=== PATIENT | male | born 1960 | race Caucasian/White ===

== ENCOUNTER 2016-03-01 08:45 | Day surgery (SDC) | payer OTHER ==
[2016-03-01 08:59] VITALS: RESP 16; TEMP 98.3
[2016-03-01] MEDS ORDERED: LACTATED RINGERS 1,000 ML IV ONE (09:04)
[2016-03-01] MEDS ORDERED: LIDOCAINE 1% 20 ML VIAL (10MG/ML) FOR IV START INTRADERMA ONE (09:05)
[2016-03-01] MEDS ORDERED: BUPIVACAINE (PF) 0.5% 30 ML VIAL ONE (09:32)
[2016-03-01] MEDS ORDERED: MIDAZOLAM 2 MG/2 ML VIAL ONE (09:32)
[2016-03-01] MEDS ORDERED: fentaNYL (PF) 50 MCG/ML 2 ML AMP ONE (09:32)
[2016-03-01] MEDS ORDERED: TRIAMCINOLONE ACETONIDE 40 MG/ML 1 ML VIAL ONE (09:32)
--- NOTE | 2016-03-01 10:09 | P.PCN ---
Date of Procedure: 03/01/16 Preoperative Diagnosis: Lumbar spondylosis without myelopathy Postoperative Diagnosis: Lumbar spondylosis without myelopathy or Procedure(s) Performed: Left lumbar medial branch radiofrequency ablation under fluoroscopic guidance Implants: Anesthesia: MAC Surgeon: Lilli Raman Pathology: none sent Condition: stable Disposition: PACU Indications for Procedure: Operative Findings: Description of Procedure: The patient was seen in preoperative holding area consent was obtained and was brought into the procedure room and placed in prone position. Skin was prepped with ChloraPrep and draped in a sterile manner. Lidocaine 1% was used to numb the skin over the target points that were chosen as follows: For the L5-S1 level which corresponds to the dorsal ramus of L5 the target point was at the superior medial aspect of the sacral ala on the left side of the spine on the AP view of fluoroscopy. For the L2-L3 and L4 medial branches the target points were the connection between the transverse process and the superior articular process of L3,L4 and L5 vertebra respectively on the left oblique view of fluoroscopy. I Used 18 gauge 100 mm in length with 10 mm curved active tip radiofrequency ablation needles for this procedure. I tried to place the active tips as parallel as possible to the medial branches tracks by going in a superior medial direction. AP oblique and lateral views of fluoroscopy were obtained to verify needle tips position. Motor stimulation showed only local twitches of these needles with no radiation of twitching to the left lower extremity after that I injected 1 mL of a solution made up of 3 mils Marcaine 0.5% +40 mg of Kenalog. Radio frequency ablation was started for 2 sessions for 90 seconds at 80C the needles were withdrawn by 1 or 2 mm and turning 180 after the first session of ablation. Patient tolerated procedure well.
[2016-03-01] MEDS ORDERED: IV FLUID CONTINUATION 700 ML IV ONE (10:16)
[2016-03-01 10:36] VITALS: BP 113/67; PULSE 69
--- NOTE | 2016-03-01 12:28 | FL ---
EXAMINATION TYPE: FL guided pain mgmt statistic DATE OF EXAM: 03/01/2016 10:06 AM COMPARISON: NONE HISTORY: Back pain Fluoroscopy support supplied to the referring clinician. See dictated report from anesthesia, 14 sec onds fluoroscopy time supplied, intraoperative C-arm image documents the procedure
== END 2016-03-01 11:06 | disposition home or self-care (01) ==
LOC: ORPAIN 08:45
PROVIDERS: ATTEND Anesthesiology
DX: M47.816 Spondylosis without myelopathy or radiculopathy, lumbar region (principal)
CPT/HCPCS: 64635; 64636; J2250; J3301; J3010

== ENCOUNTER → 2016-03-31 | Outpatient (CLI) | payer OTHER ==
[2016-03-31 14:37] VITALS: BP 140/79; PULSE 70; RESP 16; TEMP 98
--- NOTE | 2016-04-01 21:38 | P.PN ---
Subjective This is follow-up visit for this patient with a history of severe and chronic low back pain secondary to lumbar degenerative disc disease, lumbar facet arthropathy, we have done interventional pain management injection, radiofrequency ablation of the medial branch lumbar area, and this helped his low back pain significantly, and is currently on pain medications 1-MS Contin 60 mg every 8 hours 2-Percocet 5/325 every 6 hours when necessary for breakthrough pain Patient denies any side effects of the medication, denies excessive drowsiness or sleepiness, denies suicidal ideation, and reports that the current pain medication is NOT helping To control the pain and improve activity of daily living the VAS 8 /10 without the medications ,and it drope to 3-4 /10 with the medication Physical Examinations : 1-Constitutiona : Cooperative , not in acute distress . 2-HEENT : nech ; supple , no Lymphadenopathy , no Thyromegaly , normal thyroid size . eyes : no ptosis , no icterus, no photophobia . ENT : normal of hearing , normal oropharynx , no Thrush . 3- Respiratory : Chest clear to auscultations Bilaterally , no wheezing , no Rhonchi . 4- Cardiovascular : regular rate and rhythem , S1 , S2 , no S3 , no S4. 5- Gastrointestinal : abdomen soft no tenderness , bowel sounds positive all four quadrents , no organomegally . 6- Genitourinary : Defferred . 7- neurologic : Cranial nerve II to XII intact , no focal neurological deffecit . 8-psychatric : alert , oriented X 3 , appropriate affect , intact judgment and insight . 9-Lymphatic : no Lymphadenopathy . 10- musculoskeltal : exams of the cervical spine = motor strength normal bilateral upper extremities facet loading test cervical area positive. exams of the Lumber spine = motor strength lower extremities ,thigh and legs .4/5 deep tendon reflexes : normal Knee Jerk , normal ankle Jerk . lumber facet Loading Test positive strait leg raising test positive at 30 degree , RT ,LT , Fabere test positive RT and positive LT . Range of motion: Range of motion in flexion of the lumbar spine 30 degrees Range of motion range of motion of extension of the lumbar spine 10 Assessment and plan = - Chronic low back pain secondary to lumbar degenerative disc disease , lumbar spondylosis with facet arthropathy without myelopathy , - chronic and current use of high-risk medication (Opioids). The patient was counseled about risk of opioid use, psychological risk associated with opioids and was orally counseled to not overuse , abuse , divert ,or sell dictations to take medications as prescribed only , and to restore medication in safe location , and the patient counseled against driving while using narcotic medications, and also not to use alcohol or any illicit recreational drugs the patient's verbalized understanding that the lack of compliance will result in failure to renew narcotic prescription and possible discharge from the clinic - diagnoses, prognosis, and treatment options including but not limited to physical therapy, surgical interventions, interventional therapies and medication management including narcotics and adjuvant medication were discussed with the patient and all The questions answered -medication management =1-MS Contin 60 mg every 8 hours dispense 90 with 1 refill 2- Percocet 5/325 every 6 hours dispensed 120 with one refill . Next visit we'll do urine drug screen Objective - Vital Signs Vital signs: Vital Signs Temp 98 F 03/31/16 14:27 Pulse 70 03/31/16 14:27 Resp 16 03/31/16 14:27 BP 140/79 03/31/16 14:27 Pulse Ox 97 03/31/16 14:27
== END | disposition home or self-care (01) ==
LOC: PNWHC3 13:25
PROVIDERS: ATTEND Specialist
DX: G89.29 Other chronic pain (principal); M51.36 Other intervertebral disc degeneration, lumbar region; M47.816 Spondylosis without myelopathy or radiculopathy, lumbar region; M46.96 Unspecified inflammatory spondylopathy, lumbar region; Z79.891 Long term (current) use of opiate analgesic
CPT/HCPCS: 99211

== ENCOUNTER → 2016-06-22 | Outpatient (CLI) | payer OTHER ==
[2016-06-22 14:29] VITALS: BP 141/83; PULSE 90; RESP 18; TEMP 97.4
--- NOTE | 2016-06-22 14:44 | P.PN ---
Progress Note - Text This is a 56-year-old gentleman with history of chronic lower back pain with occasional radiation to the lower extremities. The patient has failed back surgery syndrome. His pain has been well-controlled with a combination of intervention pain procedures and oral opioids. He has been on MS Contin 60 mg 3 times a day and Percocet 5 mg up to 5 times a day for long time. He denies any side effects to these medications he does not show any drug-seeking behavior. He doesn't look oversedated. He denies any suicidal thoughts.. Today I will continue her this pain treatment with MS Contin and Percocet with no changes and we'll see him 2 months from now.
== END | disposition home or self-care (01) ==
LOC: PNWHC3 13:24
PROVIDERS: ATTEND Anesthesiology
DX: M54.5 Low back pain (principal); G89.29 Other chronic pain; Z79.891 Long term (current) use of opiate analgesic; Z79.899 Other long term (current) drug therapy
CPT/HCPCS: 99211

== ENCOUNTER 2016-08-09 21:45 | Emergency (ER) | payer OTHER ==
[2016-08-09 21:49] VITALS: RESP 18
[2016-08-09] MEDS ORDERED: ONDANSETRON 4 MG/2 ML VIAL IVP STA (21:59)
[2016-08-09] MEDS ORDERED: SODIUM CHLORIDE 0.9% 1,000 ML IV STA (21:59)
[2016-08-09] MEDS ORDERED: HYDROmorphone 1 MG/ML 1 ML SYRINGE IVP STA (21:59)
[2016-08-09] MEDS ORDERED: KETOROLAC 30 MG/ML 1 ML VIAL IVP STA (21:59)
[2016-08-09 22:26] LABS: Basophils % (A) 1 %; CH 33.7; CHCM 36.7; Eosinophils # (A) 0.2 k/uL (0-0.7); Eosinophils % (A) 3 %; HCT 39.1 % (39.0-53.0); HDW 3.01; HGB 14.1 gm/dL (13.0-17.5); Luc # (Auto) 0.16; Luc % (Auto) 3; Lymphocytes # (A) 1.9 k/uL (1.0-4.8); Lymphocytes % (A) 31 %; MCH 33.3 pg (25.0-35.0); MCHC 36.1 g/dL (31.0-37.0); MCV 92.3 fL (80.0-100.0); Mean Platelet Volume 7.6; Monocytes # (A) 0.3 k/uL (0-1.0); Monocytes % (A) 4 %; Neutrophils # (A) 3.5 k/uL (1.3-7.7); Neutrophils % (A) 58 %; RBC 4.24 m/uL (4.30-5.90); RDW 12.9 % (11.5-15.5); WBC (Perox) 6.37
[2016-08-09 22:38] LABS: ALT 48 U/L (21-72); AST 31 U/L (17-59); Alkaline Phosphatase 82 U/L (38-126); Amylase 73 U/L (30-110); Anion Gap 12 mmol/L; Blood Urea Nitrogen 16 mg/dL (9-20); Calcium 9.4 mg/dL (8.4-10.2); Carbon Dioxide 23 mmol/L (22-30); Chloride 105 mmol/L (98-107); Glucose 106 mg/dL (74-99); Non-African American GFR(MDRD) >60 (>60 ml/min/1.73 sqM); Potassium 4.1 mmol/L (3.5-5.1); Sodium 140 mmol/L (137-145); Total Bilirubin 0.9 mg/dL (0.2-1.3); Total Protein 6.7 g/dL (6.3-8.2)
--- NOTE | 2016-08-09 22:47 | XR ---
EXAM: XR Abdomen, 1 View CLINICAL HISTORY: Reason: abdominal pain TECHNIQUE: Frontal upright views of the abdomen/pelvis. COMPARISON: No relevant prior studies available. FINDINGS: Lower thorax: There appears to be a small calcified left hilar node present. Gastrointestinal tract: Mild to moderate amount of colonic stool throughout. No grossly dilated bowel loops are seen although there do appear to be a few scattered air-fluid levels, probably colonic, on these upright views. Organs: Right upper quadrant clips suggest cholecystectomy. Bones/joints: Multilevel degenerative changes, with slight leftward curvature centered at L1-2. IMPRESSION: 1. Nonspecific bowel gas pattern that includes scattered air-fluid levels without significant bowel distention to suggest obstruction, perhaps on the basis of ongoing ileus. The findings could be correlated and followed clinically to guide further imaging follow-up as clinically indicated. 2. No evidence of free air.
[2016-08-09] MEDS ORDERED: SODIUM CHLORIDE 0.9% 1,000 ML IV ONE (23:11)
[2016-08-09] MEDS ORDERED: SODIUM CHLORIDE 0.9% 1,000 ML IV SCH (23:15)
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
[2016-08-10] MEDS ORDERED: HYDROmorphone 1 MG/ML 1 ML SYRINGE IVP STA
[2016-08-10 00:02] LABS: Appearance,Urine Clear (Clear); Bilirubin,Urine Negative (Negative); Glucose,Urine (UA) Negative (Negative); Ketones,Urine Negative (Negative); Leukocyte Esterase,Urine Negative (Negative); Mucus,Urine Occasional /hpf; Nitrite,Urine Negative (Negative); Particle Count 3262; Protein,Urine Negative (Negative); RBC,Urine 14 /hpf (0-5); Specific Gravity,Urine 1.018 (1.001-1.035); UA Billing (MACRO vs. MICRO) MICRO; Urobilinogen,Urine <2.0 mg/dL (<2.0); WBC,Urine 1 /hpf (0-5)
[2016-08-10] MEDS ORDERED: MORPHINE SULFATE 4 MG/ML SYRINGE IVP STA (00:06)
--- NOTE | 2016-08-10 00:20 | CT ---
EXAM: CT Abdomen and Pelvis Without Intravenous Contrast CLINICAL HISTORY: Reason: Left flank pain TECHNIQUE: Axial computed tomography images of the abdomen and pelvis without intravenous contrast. CTDI is 14.90 mGy and DLP is 734.70 mGy-cm. This CT exam was performed using one or more of the following dose reduction techniques: automated exposure control, adjustment of the mA and/or kV according to patient size, and/or use of iterative reconstruction technique. COMPARISON: Earlier KUB. FINDINGS: Lower thorax: Minimal peripheral atelectasis or scarring at the lung bases. Coronary artery calcification. Mildly elevated left diaphragm. ABDOMEN: Liver: Diffuse hepatic steatosis. Gallbladder and bile ducts: Prior cholecystectomy. No ductal dilation. Pancreas: Mild generalized fatty replacement of the pancreas. Spleen: No splenomegaly. Adrenals: Unremarkable. No mass. Kidneys and ureters: No obstructing stones. No hydronephrosis. Stomach and bowel: Dilated air and fluid-filled small bowel loops measuring up to 5.7 cm in craniocaudal span on coronal image 27, anteriorly within the mid and lower abdomen, where there is a small left supraumbilical ventral wall hernia that contains a small portion of one small bowel loop within, adjacent to which small bowel is nondilated. Likewise, remaining small bowel including distally within the pelvis and right lower quadrant, is nondilated, nor is the colon. Appendix: No findings to suggest acute appendicitis. PELVIS: Bladder: Unremarkable. No stones. Reproductive: Small calcification centrally within normal size prostate gland. ABDOMEN and PELVIS: Intraperitoneal space: No free air. No significant fluid collection. Bones/joints: Multilevel degenerative changes. No acute fracture. Soft tissues: Small fat-containing umbilical hernia. Vasculature: Small amounts of atherosclerotic calcification. No abdominal aortic aneurysm. Lymph nodes: Scattered mildly prominent mesenteric nodes with surrounding mesenteric haziness. IMPRESSION: 1. There are several dilated small bowel loops suggesting the presence of a small bowel obstruction, with one of the loops slightly protruding into a left ventral wall hernia, perhaps the etiology or on the basis of adhesions. 2. Mildly prominent mesenteric nodes with surrounding mesenteric haziness suggesting a nonspecific mesenteritis. Follow-up CT could be obtained within 3 months to reassess. 3. Additional findings as above.
[2016-08-10] MEDS ORDERED: TAMSULOSIN 0.4 MG CAP.ER.24H PO STA (01:10)
[2016-08-10 01:22] VITALS: BP 110/78; PULSE 56; TEMP 98.7
== END 2016-08-10 01:20 | disposition home or self-care (01) ==
LOC: EC 21:45
DX: R10.9 Unspecified abdominal pain (principal); R30.0 Dysuria; F17.290 Nicotine dependence, other tobacco product, uncomplicated; Z79.1 Long term (current) use of non-steroidal anti-inflammatories (NSAID); Z79.899 Other long term (current) drug therapy; Z87.442 Personal history of urinary calculi; Z90.49 Acquired absence of other specified parts of digestive tract
CPT/HCPCS: 36415; 80053; 82150; 83690; 85025; 81001; 74000; 74176; 99285; 96374; 96375 ×3; 96361 ×3; J2270; J2405; J1885; J1170

== ENCOUNTER → 2016-08-17 | Outpatient (CLI) | payer OTHER ==
[2016-08-17 12:10] VITALS: BP 138/82; PULSE 66; RESP 16; TEMP 98.1
--- NOTE | 2016-08-17 12:30 | P.PN ---
Progress Note - Text Patient returns for followup for chronic back pain with radiation to lower extremities bilaterally. Patient underwent bilateral lumbar RFA in December and February, which provided some relief for a short interval. Patient continues on MSContin and Percocet medications for pain with decent relief. Patient denies adverse drug effects from medications. Today, pt denies new- onset weakness, bowel/bladder incontinence, or any other signs or symptoms of cauda equina syndrome. Patient's primary complaint is low back and hip pain, worse on right than left side. This pain prevents him from sitting or standing for long periods of time. In addition to above, 13-point review of systems is also negative for chest pain , shortness of breath, changes in vision, changes in hearing, new onset weakness , abdominal pain, diarrhea, extreme fatigue, malaise, fever, skin changes, homicidal or suicidal ideation, or bowel or bladder incontinence. Gen: WDWN, AAOx3, NAD HEENT: NCAT, EOMI, hearing grossly normal Pulm: resp unlabored Abd: soft, NT, ND Neck: supple, trachea midline ROM in flexion lumbar spine: reduced ROM in extension lumbar spine: reduced due to pain Lumbar paravertebral tenderness: L > R Facet loading: + bilaterally, L > R SI joint tenderness: + L side, neg R side Landon's test: ++ L side, + R side Straight leg raise: neg bilaterally Neuro: CN II-XII grossly intact, muscle strength lower extremities PRESERVED Assessment: 1. sacroiliitis 2. lumbar spondylosis without myelopathy 3. chronic pain syndrome Plan: 1. Explanation: Opioid and psychological risk scores were reviewed. Diagnoses , prognoses, and multiple treatment options including but not limited to physical therapy, interventional therapies, adjuvant medical therapies, narcotic medication therapies, and surgery were discussed with the patient and all questions were answered to the patient's satisfaction. 2. Opioid agreement: Patient signed narcotic agreement, and was orally counseled to not overuse, abuse, divert, or cell medications, and to take them as prescribed by only 1 healthcare provider. The patient was also counseled to take medications as prescribed by only 1 healthcare provider and to store opioid medications in the safe and preferably locked location. Patient was also counseled against driving while using narcotic medications and also to not use alcohol or any illicit or recreational drugs. The patient verbalized understanding that lack of compliance with any of the above and likely result in failure to renew narcotic prescriptions, possible discharge from the clinic, and possible legal ramifications thereafter if indicated. 3. Counseling: The patient was counseled extensively on SMOKING CESSATION, BODY MASS INDEX, EXERCISE, and ALCOHOL use. Specifically, the patient was instructed regarding the importance of smoking cessation, obesity, and exercise in the context of both chronic pain and overall health. 4. Procedures: R lumbar RFA 5. Consultations: None 6. Investigations: None 7. Medications: Decreased Percocet to 5/325 #120 and maintained MSContin 60 mg #90. Urine drug screen today. Told patient he is well above the recommended 90 oral MME, and we will plan to decrease Percocet to #90 over the next few months. After this, we will begin decreasing his MSContin dose. PQRS measures: 1-Patient's medications are documented in the chart. 2-Tobacco use is positive, counseling given 3-Patient has not had a pneumococcal vaccine. 4-Advanced care planning discussed, patient not eligible. 5-Opioid contract signed with the patient. 6-Pain positive, follow-up visit or procedure scheduled 7-Patient's blood pressure measured and documented, and normal. 8-Patient's weight was measured, and body mass index ABOVE the normal limits, and counseling was done. Patient instructed to follow up with PCP. 9-Patient WAS NOT identified as an unhealthy alcohol user.
== END | disposition home or self-care (01) ==
LOC: PNWHC3 11:52
PROVIDERS: ATTEND Anesthesiology
DX: M46.1 Sacroiliitis, not elsewhere classified (principal); M47.816 Spondylosis without myelopathy or radiculopathy, lumbar region; G89.4 Chronic pain syndrome; Z79.899 Other long term (current) drug therapy; Z72.0 Tobacco use
CPT/HCPCS: G0480; G0463; 80307; 80348; 80356; 99211

== ENCOUNTER 2016-09-27 09:17 | Day surgery (SDC) | payer OTHER ==
[2016-09-23 13:28] VITALS: BMI 28.8
[~2016-09-27 09:17] MED LIST: LACTATED RINGERS 1,000 ML IV ONE
[2016-09-27 10:05] VITALS: RESP 16; TEMP 98.4
[2016-09-27] MEDS ORDERED: LIDOCAINE 1% 20 ML VIAL (10MG/ML) FOR IV START SQ ONE (10:11)
--- NOTE | 2016-09-27 11:02 | P.PCN ---
Date of Procedure: 09/27/16 Preoperative Diagnosis: Lumbar spondylosis without myelopathy Postoperative Diagnosis: Same as above Procedure(s) Performed: Right lumbar medial branch radio frequency ablation under fluoroscopic guidance for levels L2, L3, L4, and the dorsal ramus of L5 Implants: Anesthesia: other (Moderate conscious sedation with IV Versed and fentanyl) Surgeon: Lilli Raman Pathology: none sent Condition: stable Disposition: PACU Indications for Procedure: Operative Findings: Description of Procedure: The patient was seen in preoperative holding area consent was obtained then he was brought into the procedure room and placed in prone position. Skin was prepped with ChloraPrep and draped in a sterile manner. Lidocaine 1% was used to numb the skin up at the target points that were chosen as follows: For the L5 -S1 level which corresponds to the dorsal ramus of L5 the target point was at the superior medial aspect of the sacral ala on the right side of the spine on the AP view of fluoroscopy and for the L2,L3, and L4 medial branches the target points were the connection between the transverse process and the superior articular process of L3, for this procedure. L4 and L5 vertebra respectively on the right oblique fluoroscopy. I used 18G,100 mm in length with 10 mm curved active tip radiofrequency ablation needles. AP, oblique, and lateral views of fluoroscopy were used to verify needle tips position. Then motor stimulation showed only local twitches of these needles with no radiation of twitching to the right lower extremity. I then prepared a solution of 3 mils of Marcaine 0.5% +40 mg of Kenalog and 1 mL of the solution was given in each needle before starting radiofrequency ablation for 90 seconds at 80C. After the first session was done the needles were withdrawn by 1 or 2 mm and the bevels were turned 100 and another session ablation was started for 90 seconds at 80C. Patient tolerated procedure well.
--- NOTE | 2016-09-27 11:06 | FL ---
Fluoroscopy INDICATION: Pain FINDINGS: Fluoroscopy time: 11 seconds. Images obtained: 1. IMPRESSIONS: 1. Documentation of fluoroscopy.
[2016-09-27 11:07] VITALS: BP 126/70
[2016-09-27] MEDS ORDERED: IV FLUID CONTINUATION 1,000 ML IV ONE (11:09)
[2016-09-27 11:22] VITALS: PULSE 69
[2016-09-29 08:27] LABS: Mis test requested (Non-blood) HEROIN
== END 2016-09-27 11:36 | disposition home or self-care (01) ==
LOC: ORPAIN 09:17
PROVIDERS: ATTEND Anesthesiology
DX: M47.816 Spondylosis without myelopathy or radiculopathy, lumbar region (principal)
CPT/HCPCS: 64635; 64636; 99152; 99153; J2250; J3301; J3010; 80356

== ENCOUNTER → 2016-10-12 | Outpatient (CLI) | payer OTHER ==
[2016-10-12 12:59] VITALS: BP 143/74; PULSE 69; RESP 18; TEMP 98
--- NOTE | 2016-10-12 13:44 | P.PN ---
Progress Note - Text Patient returns for followup for chronic back pain with radiation to lower extremities bilaterally. Patient underwent right lumbar RFA at last visit, which provided some relief for interval since procedure done two weeks ago. Patient continues on MSContin and Percocet medications for pain with decent relief; Percocet decreased to #120 at last visit. Patient denies adverse drug effects from medications. Today, pt denies new-onset weakness, bowel/bladder incontinence, or any other signs or symptoms of cauda equina syndrome. Patient's primary complaint is low back and hip pain, worse on right than left side. This pain prevents him from sitting or standing for long periods of time. In addition to above, 13-point review of systems is also negative for chest pain , shortness of breath, changes in vision, changes in hearing, new onset weakness , abdominal pain, diarrhea, extreme fatigue, malaise, fever, skin changes, homicidal or suicidal ideation, or bowel or bladder incontinence. Gen: WDWN, AAOx3, NAD HEENT: NCAT, EOMI, hearing grossly normal Pulm: resp unlabored Abd: soft, NT, ND Neck: supple, trachea midline ROM in flexion lumbar spine: reduced ROM in extension lumbar spine: reduced due to pain Lumbar paravertebral tenderness: L > R Facet loading: + bilaterally, L >> R SI joint tenderness: + L side Landon's test: + bilateral Neuro: CN II-XII grossly intact, muscle strength lower extremities PRESERVED Assessment: 1. sacroiliitis 2. lumbar spondylosis without myelopathy 3. chronic pain syndrome Plan: 1. Explanation: Opioid and psychological risk scores were reviewed. Diagnoses , prognoses, and multiple treatment options including but not limited to physical therapy, interventional therapies, adjuvant medical therapies, narcotic medication therapies, and surgery were discussed with the patient and all questions were answered to the patient's satisfaction. 2. Opioid agreement: Patient signed narcotic agreement, and was orally counseled to not overuse, abuse, divert, or cell medications, and to take them as prescribed by only 1 healthcare provider. The patient was also counseled to take medications as prescribed by only 1 healthcare provider and to store opioid medications in the safe and preferably locked location. Patient was also counseled against driving while using narcotic medications and also to not use alcohol or any illicit or recreational drugs. The patient verbalized understanding that lack of compliance with any of the above and likely result in failure to renew narcotic prescriptions, possible discharge from the clinic, and possible legal ramifications thereafter if indicated. 3. Counseling: The patient was counseled extensively on SMOKING CESSATION, BODY MASS INDEX, EXERCISE, and ALCOHOL use. Specifically, the patient was instructed regarding the importance of smoking cessation, obesity, and exercise in the context of both chronic pain and overall health. 4. Procedures: left lumbar RFA 5. Consultations: None 6. Investigations: UDS negative for oxycodone on 09/27/16 7. Medications: Maintained Percocet at 5/325 #120 and maintained MSContin 60 mg #90. Urine drug screen today. Told patient he is well above the recommended 90 oral MME, and we will plan to decrease Percocet to #90 over the next few months. After this, we will begin decreasing his MSContin dose. PQRS measures: 1-Patient's medications are documented in the chart. 2-Tobacco use is positive, counseling given 3-Patient has not had a pneumococcal vaccine. 4-Advanced care planning discussed, patient not eligible. 5-Opioid contract signed with the patient. 6-Pain positive, follow-up visit or procedure scheduled 7-Patient's blood pressure measured and documented, and normal. 8-Patient's weight was measured, and body mass index ABOVE the normal limits, and counseling was done. Patient instructed to follow up with PCP. 9-Patient WAS NOT identified as an unhealthy alcohol user.
== END ==
LOC: PNWHC3 12:32
PROVIDERS: ATTEND Anesthesiology
DX: M47.816 Spondylosis without myelopathy or radiculopathy, lumbar region (principal); M46.1 Sacroiliitis, not elsewhere classified; Z79.891 Long term (current) use of opiate analgesic; Z79.899 Other long term (current) drug therapy
CPT/HCPCS: 80307; 80346; 80356; 80364; 99211

== ENCOUNTER 2016-10-26 07:45 | Day surgery (SDC) | payer OTHER ==
[2016-10-19 15:11] VITALS: BMI 28.1
[~2016-10-26 07:45] MED LIST changes: -LACTATED RINGERS 1,000 ML IV ONE; +LACTATED RINGERS 1,000 ML IV SCH
[2016-10-26 08:40] VITALS: TEMP 98.3
[2016-10-26] MEDS ORDERED: LIDOCAINE 1% 20 ML VIAL (10MG/ML) FOR IV START INTRADERMA ONE (08:52)
--- NOTE | 2016-10-26 09:58 | P.PCN ---
Date of Procedure: 10/26/16 Preoperative Diagnosis: lumbar Spondylosis without myelopathy Postoperative Diagnosis: Same as above Procedure(s) Performed: Left lumbar medial branch radiofrequency ablation under fluoroscopic guidance Implants: Anesthesia: other (Conscious sedation with IV fentanyl and Versed) Surgeon: Lilli Raman Pathology: none sent Condition: stable Disposition: PACU Indications for Procedure: Operative Findings: Description of Procedure: The patient was seen in preoperative holding area consent was obtained then he was brought into the procedure room and placed in prone position. Skin was prepped with ChloraPrep and draped in a sterile manner. Lidocaine 1% was used to numb the skin up at the target points that were chosen as follows: For the L5 -S1 level which corresponds to the dorsal ramus of L5 the target point was at the superior medial aspect of the sacral ala on the left side of the spine on the AP view of fluoroscopy and for the L2,L3, and L4 medial branches the target points were the connection between the transverse process and the superior articular process of L3, L4 and L5 vertebra respectively on the left oblique fluoroscopy. I used 18G,100 mm in length with 10 mm curved active tip radiofrequency ablation needles. AP, oblique, and lateral views of fluoroscopy were used to verify needle tips position. Then motor stimulation showed only local twitches of these needles with no radiation of twitching to the left lower extremity. I then prepared a solution of 3 mils of Marcaine 0.5% +40 mg of Kenalog and 1 mL of the solution was given in each needle before starting radiofrequency ablation for 90 seconds at 80C. After the first session was done the needles were withdrawn by 1 or 2 mm and the bevels were turned 100 and another session ablation was started for 90 seconds at 80C. Patient tolerated procedure well.
[2016-10-26] MEDS ORDERED: IV FLUID CONTINUATION 350 ML IV ONE (10:12)
[2016-10-26 10:22] VITALS: RESP 18
[2016-10-26 10:28] VITALS: BP 103/70; PULSE 62
--- NOTE | 2016-10-26 10:34 | FL ---
EXAMINATION TYPE: FL guided pain mgmt statistic DATE OF EXAM: 10/26/2016 COMPARISON: NONE HISTORY: Back pain TECHNIQUE: Fluoroscopy. FINDINGS/IMPRESSION: Fluoroscopic guidance was provided during procedure performed by Dr. Raman. A total of 13 seconds of fluoroscopic time was utilized during the procedure and for spot images was acquired.
--- NOTE | 2016-11-01 20:17 | CDI ---
Dear Dr. Raman, In order to properly code and bill, we need more specificity regarding the levels treated. "To report these procedures appropriately, physicians must clearly document the following: vertebral region level(s) (eg, cervical, thoracic, lumbar, etc.), and the facet joints (eg. L3-L4, L4-L5) involved, and whether the procedure(s) is unilateral or bilateral. Although the number of nerves and/or lesions might be noted in the clinical note, these factors do not influence the code selection or the number of units reported."-CPT Asst In summary, the coding of this procedure is based on number of facet joints treated, not number of nerves treated. The facet joints must be reported as L2- L3, L3-L4, L4-L5, L5-S1, for example. Please state the injections in terms of facet joint levels as an addendum to your op report. Thank you, Sol CHU
== END 2016-10-26 10:44 | disposition home or self-care (01) ==
LOC: ORPAIN 07:45
PROVIDERS: ATTEND Anesthesiology
DX: M47.816 Spondylosis without myelopathy or radiculopathy, lumbar region (principal)
CPT/HCPCS: 99152; 99153; 64635; 64636 ×2; J2250; J3010

== ENCOUNTER → 2016-12-07 | Outpatient (CLI) | payer OTHER ==
[2016-12-07 13:50] VITALS: BP 138/78; PULSE 77; RESP 16
--- NOTE | 2016-12-07 14:06 | P.PN ---
Subjective Progress Note Date: 12/07/16 This is follow-up visit for this patient with a history of severe and chronic low back pain secondary to , lumbar spondylosis with facet arthropathy , we have done interventional pain management injection, radiofrequency ablation of the medial branch lumbar area which helped his lower extremity significantly and continued to have some low back pain, is currently On pain medication, 1-MS Contin 60 mg every 8 hours 2-Percocet 5/325 every 6 hours when necessary for pain 3-Motrin 600 mg every 8 hours Patient denies any side effects of the medication, denies excessive drowsiness or sleepiness, denies suicidal ideation, and reports that the current pain medication is NOT helping To control the pain and improve activity of daily living Patient denies any motor or sensory deficit , patient denies any fever or night sweats, denies any change in the bowel movements or urination Physical Examinations : 1-Constitutiona : Cooperative , not in acute distress . 2-HEENT : nech ; supple , no Lymphadenopathy , no Thyromegaly , normal thyroid size . eyes : no ptosis , no icterus, no photophobia . ENT : normal of hearing , normal oropharynx , no Thrush . 3- Respiratory : Chest clear to auscultations Bilaterally , no wheezing , no Rhonchi . 4- Cardiovascular : regular rate and rhythem , S1 , S2 , no S3 , no S4. 5- Gastrointestinal : abdomen soft no tenderness , bowel sounds positive all four quadrents , no organomegally . 6- Genitourinary : Defferred . 7- neurologic : Cranial nerve II to XII intact , no focal neurological deffecit . 8-psychatric : alert , oriented X 3 , appropriate affect , intact judgment and insight . 9-Lymphatic : no Lymphadenopathy . 10- musculoskeltal : exams of the Lumber spine = motor strength lower extremities ,thigh and legs .5/5 deep tendon reflexes : normal Knee Jerk , normal ankle Jerk . lumber facet Loading Test positive strait leg raising test positive at 30 degree , RT ,LT , Fabere test positive RT and positive LT . Range of motion: Range of motion in flexion of the lumbar spine 30 degrees Range of motion range of motion of extension of the lumbar spine 10 assement and plan = Chronic low back pain secondary to, lumbar spondylosis with facet arthropathy without myelopathy , chronic and current use of high-risk medication (Opioids). The patient was counseled about risk of opioid use, psychological risk associated with opioids and was orally counseled to not overuse , divert,or sell dictations to take medications as prescribed only , and to restore medication in safe location , and the patient counseled against driving while using narcotic medications, and also not to use alcohol or any illicit recreational drugs, the patient's verbalized understanding that the lack of compliance will result in failure to renew narcotic prescription and possible discharge from the clinic - diagnoses, prognosis, and treatment options including but not limited to physical therapy, surgical interventions, interventional therapies , and medication management including narcotics and adjuvant medication were discussed with the patient and all the questions answered Prescription refills for MS Contin 60 mg every 8 hours dispense 90 with 1 refill Percocet 5/325 every 6 hours dispense 120 with one refill, Motrin 600 mg every 8 hours dispense 90 with 1 refill , and he will follow up in the pain clinic in 2 months Objective - Vital Signs Vital signs: Vital Signs Temp Pulse 77 12/07/16 13:39 Resp 16 12/07/16 13:39 BP 138/78 12/07/16 13:39 Pulse Ox 98 12/07/16 13:39 Intake & Output 12/06/16 12/07/16 12/07/16 18:59 06:59 18:59 Weight 83.915 kg
== END | disposition home or self-care (01) ==
LOC: PNWHC3 13:14
PROVIDERS: ATTEND Specialist
DX: M47.816 Spondylosis without myelopathy or radiculopathy, lumbar region (principal); M46.86 Other specified inflammatory spondylopathies, lumbar region
CPT/HCPCS: 99211

== ENCOUNTER → 2017-02-28 | Outpatient (CLI) | payer OTHER ==
--- NOTE | 2017-02-28 15:50 | P.PN ---
Subjective Progress Note Date: 02/28/17 This is follow-up visit for this patient with a history of severe and chronic low back pain secondary to lumbar degenerative disc diseases , lumbar spondylosis with facet arthropathy, we have done interventional pain management injection, facet ablation of the medial branch lumbar area, Patients currently on 1- MS Contin 60 mg every 8 hours 2- percocet 5/325 q 6 h 3- motrin 600 mg 3 times a day Patient denies any side effects of the medication, denies excessive drowsiness or sleepiness, denies suicidal ideation, and reports that the current pain medication is helping To control the pain ,and improve activity of daily living Patient denies any motor or sensory deficit , patient denies any fever or night sweats, denies any change in the bowel movements or urination, and heat have severe right shoulder pain after he fell on his right elbow , he was schedualed to see orthopedic surgeon the next few weeks Physical Examinations : 1-Constitutiona : Cooperative , not in acute distress . 2-HEENT : nech ; supple , no Lymphadenopathy , no Thyromegaly , normal thyroid size . eyes : no ptosis , no icterus, no photophobia . ENT : normal of hearing , normal oropharynx , no Thrush . 3- Respiratory : Chest clear to auscultations Bilaterally , no wheezing , no Rhonchi . 4- Cardiovascular : regular rate and rhythem , S1 , S2 , no S3 , no S4. 5- Gastrointestinal : abdomen soft no tenderness , bowel sounds positive all four quadrents , no organomegally . 6- Genitourinary : Defferred . 7- neurologic : Cranial nerve II to XII intact , no focal neurological deffecit . 8-psychatric : alert , oriented X 3 , appropriate affect , intact judgment and insight . 9-Lymphatic : no Lymphadenopathy . 10- musculoskeltal : exams of the cervical spine = motor strength normal bilateral upper extremities passive and Active movement of the right shoulder associated with severe pain exams of the Lumber spine = motor strength lower extremities ,thigh and legs .5/5 deep tendon reflexes : normal Knee Jerk , normal ankle Jerk . lumber facet Loading Test positive strait leg raising test positive at 30 degree , RT ,LT , Fabere test positive RT and positive LT . Range of motion: Range of motion in flexion of the lumbar spine 30 degrees Range of motion range of motion of extension of the lumbar spine 10 Assessment and plan = Chronic low back pain secondary to lumbar degenerative disc disease , lumbar spondylosis with facet arthropathy without myelopathy , right shoulder pain chronic and current use of high-risk medication (Opioids). The patient was counseled about risk of opioid use, psychological risk associated with opioids and was orally counseled to not overuse , divert,or sell dictations to take medications as prescribed only , and to restore medication in safe location , and the patient counseled against driving while using narcotic medications, and also not to use alcohol or any illicit recreational drugs, the patient's verbalized understanding that the lack of compliance will result in failure to renew narcotic prescription and possible discharge from the clinic - diagnoses, prognosis, and treatment options including but not limited to physical therapy, surgical interventions, interventional therapies , and medication management including narcotics and adjuvant medication were discussed with the patient and all the questions answered She was scheduled to see Dr. Chapman orthopedic surgeon in the next few weeks and he will be evaluated regarding his shoulder pain. Event prescription refill for the pain medication Percocet 5/325 was dispensed 120 with one refill , and MS Contin 60 mg every 8 hours dispense 90 with 1 refill Objective - Vital Signs Vital signs: Vital Signs Temp Pulse 68 02/28/17 14:18 Resp 16 02/28/17 14:18 BP 128/79 02/28/17 14:18 Pulse Ox 96 02/28/17 14:18 Intake & Output 02/27/17 02/28/17 02/28/17 18:59 06:59 18:59 Weight 86.183 kg
[2017-03-01 23:06] VITALS: BP 128/79; PULSE 68; RESP 16
== END | disposition home or self-care (01) ==
LOC: PNWHC3 14:04
PROVIDERS: ATTEND Specialist
DX: M51.36 Other intervertebral disc degeneration, lumbar region (principal); M47.816 Spondylosis without myelopathy or radiculopathy, lumbar region; M46.96 Unspecified inflammatory spondylopathy, lumbar region; M46.86 Other specified inflammatory spondylopathies, lumbar region; M25.511 Pain in right shoulder
CPT/HCPCS: 99211

== ENCOUNTER → 2017-04-25 | Outpatient (CLI) | payer OTHER ==
[2017-04-25 13:19] VITALS: BP 151/82; PULSE 80; RESP 16
--- NOTE | 2017-04-25 13:47 | P.PN ---
Progress Note - Text Progress Note Date: 04/25/17 Patient returns for followup for chronic back pain with radiation to lower extremities bilaterally. Patient saw orthopedic surgeon re: Irasema shoulder and is considering further injections in the future in that area. Patient continues on MSContin and Percocet medications for pain with decent relief, but last several UDS have been problematic. Patient denies adverse drug effects from medications. Today, pt denies new-onset weakness, bowel/bladder incontinence, or any other signs or symptoms of cauda equina syndrome. Patient's primary complaint is low back and hip pain, worse on right than left side. This pain prevents him from sitting or standing for long periods of time. In addition to above, 13-point review of systems is also negative for chest pain , shortness of breath, changes in vision, changes in hearing, new onset weakness , abdominal pain, diarrhea, extreme fatigue, malaise, fever, skin changes, homicidal or suicidal ideation, or bowel or bladder incontinence. Gen: WDWN, AAOx3, NAD HEENT: NCAT, EOMI, hearing grossly normal Pulm: resp unlabored Abd: soft, NT, ND Neck: supple, trachea midline ROM in flexion lumbar spine: reduced ROM in extension lumbar spine: reduced due to pain Lumbar paravertebral tenderness: L > R Facet loading: + bilaterally, L >> R SI joint tenderness: + L side Landon's test: + bilateral Neuro: CN II-XII grossly intact, muscle strength lower extremities PRESERVED Assessment: 1. sacroiliitis 2. lumbar spondylosis without myelopathy 3. chronic pain syndrome Plan: 1. Explanation: Opioid and psychological risk scores were reviewed. Diagnoses , prognoses, and multiple treatment options including but not limited to physical therapy, interventional therapies, adjuvant medical therapies, narcotic medication therapies, and surgery were discussed with the patient and all questions were answered to the patient's satisfaction. 2. Opioid agreement: Patient signed narcotic agreement, and was orally counseled to not overuse, abuse, divert, or cell medications, and to take them as prescribed by only 1 healthcare provider. The patient was also counseled to take medications as prescribed by only 1 healthcare provider and to store opioid medications in the safe and preferably locked location. Patient was also counseled against driving while using narcotic medications and also to not use alcohol or any illicit or recreational drugs. The patient verbalized understanding that lack of compliance with any of the above and likely result in failure to renew narcotic prescriptions, possible discharge from the clinic, and possible legal ramifications thereafter if indicated. 3. Counseling: The patient was counseled extensively on SMOKING CESSATION, BODY MASS INDEX, EXERCISE, and ALCOHOL use. Specifically, the patient was instructed regarding the importance of smoking cessation, obesity, and exercise in the context of both chronic pain and overall health. 4. Procedures: none for now 5. Consultations: Adela Obrien) for eval of right shoulder 6. Investigations: UDS review as below 1. UDS negative for oxycodone and positive for hydromorphone 10/12/16 2. UDS from 09/27/16 is positive for hydromorphone in addition to oxycodone and metabolites 3. UDS done 08/17/16 is positive for buprenorphine metabolites and negative for opioids 4. UDS done 02/01/17 is positive for buprenorphine metabolites and appropriately positive for opioids. 7. Medications: MSContin 60 mg #90 and Percocet 5/325 #120 with no refill 8. Disposition: DISCHARGED FROM OPIOID CONTRACT DUE TO INAPPROPRIATE UDS ABOVE. Patient can follow up for procedures in the future if desired. PQRS measures: 1-Patient's medications are documented in the chart. 2-Tobacco use is positive, counseling given 3-Patient has not had a pneumococcal vaccine. 4-Advanced care planning discussed, patient not eligible. 5-Opioid contract signed with the patient. 6-Pain positive, follow-up visit or procedure scheduled 7-Patient's blood pressure measured and documented, and normal. 8-Patient's weight was measured, and body mass index ABOVE the normal limits, and counseling was done. Patient instructed to follow up with PCP. 9-Patient WAS NOT identified as an unhealthy alcohol user.
== END | disposition home or self-care (01) ==
LOC: PNWHC3 13:07
PROVIDERS: ATTEND Anesthesiology
DX: G89.4 Chronic pain syndrome (principal); M47.816 Spondylosis without myelopathy or radiculopathy, lumbar region; M46.1 Sacroiliitis, not elsewhere classified; Z79.891 Long term (current) use of opiate analgesic
CPT/HCPCS: 99211

== ENCOUNTER 2017-09-16 15:40 | Emergency (ER) | payer OTHER ==
[2017-09-16] MEDS ORDERED: MORPHINE SULFATE 4 MG/ML SYRINGE IV STA (16:39)
[2017-09-16] MEDS ORDERED: SODIUM CHLORIDE 0.9% 1,000 ML IV STA (16:39)
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
[2017-09-16 17:15] LABS: Basophils % (A) 1 %; Eosinophils # (A) 0.2 k/uL (0-0.7); Eosinophils % (A) 4 %; HCT 39.2 % (39.0-53.0); HGB 13.7 gm/dL (13.0-17.5); Lymphocytes # (A) 1.9 k/uL (1.0-4.8); Lymphocytes % (A) 37 %; MCHC 34.9 g/dL (31.0-37.0); MCV 91.8 fL (80.0-100.0); Mean Platelet Volume 7.8; Monocytes # (A) 0.4 k/uL (0-1.0); Monocytes % (A) 7 %; Neutrophils # (A) 2.6 k/uL (1.3-7.7); Neutrophils % (A) 49 %; Platelet Count 157 k/uL (150-450); RBC 4.27 m/uL (4.30-5.90); WBC 5.3 k/uL (3.8-10.6)
[2017-09-16 17:16] LABS: Appearance,Urine Clear (Clear); Bilirubin,Urine Negative (Negative); Blood,Urine Negative (Negative); Color,Urine Yellow; Glucose,Urine (UA) Negative (Negative); Ketones,Urine Negative (Negative); Leukocyte Esterase,Urine Negative (Negative); Nitrite,Urine Negative (Negative); PH, Urine 5.5 (5.0-8.0); Protein,Urine Negative (Negative); Specific Gravity,Urine 1.025 (1.001-1.035)
[2017-09-16 17:32] LABS: ALT 47 U/L (21-72); AST 32 U/L (17-59); Albumin 4.1 g/dL (3.5-5.0); Alkaline Phosphatase 82 U/L (38-126); Amylase 61 U/L (30-110); Anion Gap 10 mmol/L; Blood Urea Nitrogen 19 mg/dL (9-20); Calcium 9.1 mg/dL (8.4-10.2); Carbon Dioxide 25 mmol/L (22-30); Chloride 106 mmol/L (98-107); Glucose 113 mg/dL (74-99); Lipase 21 U/L (23-300); Sodium 141 mmol/L (137-145); Total Bilirubin 1.1 mg/dL (0.2-1.3); Total Protein 6.5 g/dL (6.3-8.2)
[2017-09-16 19:18] VITALS: BP 112/68; PULSE 73; RESP 16; TEMP 97.6
--- NOTE | 2017-09-16 19:43 | CT ---
EXAMINATION TYPE: CT abdomen pelvis w con DATE OF EXAM: 09/16/2017 COMPARISON: Prior CT study dated 08/09/2016. HISTORY: Patient complains of hernia and abnormal xray at office. CT DLP: 1146.8 mGycm Automated exposure control for dose reduction was used. TECHNIQUE: Helical acquisition of images was performed from the lung bases through the pelvis. CONTRAST: Performed without Oral Contrast and with IV Contrast, patient injected with 100 mL of Isovue 300. FINDINGS: LUNG BASES: No significant abnormality is appreciated. LIVER/GB: Post cholecystectomy changes. PANCREAS: No significant abnormality is seen. SPLEEN: No significant abnormality is seen. ADRENALS: No significant abnormality is seen. KIDNEYS: No significant abnormality is seen. FREE AIR: No free air is visualized. RETROPERITONEAL ADENOPATHY: None visualized REPRODUCTIVE ORGANS: No significant abnormality is seen URINARY BLADDER: No significant abnormality is seen. PELVIC ADENOPATHY: None visualized. OSSEOUS STRUCTURES: No significant abnormality is seen. BOWEL: Distended loops of bowel projecting along the mid abdomen with a hernia containing loops of saadia wel visible on axial image labeled #46. Fluid levels and distended loops of bowel indicate that the h ernia is producing moderate obstruction. OTHER: No free intraperitoneal air or significant fluid inside the peritoneal cavity. IMPRESSION: ABDOMINAL WALL HERNIA ON THE LEFT SIDE OF THE ABDOMEN WHICH IS VISIBLE ON AXIAL IMAGE LABELED #45-[id number] TAINING LOOPS OF BOWEL. DISTINCTION O AND FLUID LEVELS OF THE PROXIMAL LOOPS OF BOWEL INDICATING MODE RATE OBSTRUCTION. NO FREE AIR OR SIGNIFICANT FREE FLUID INSIDE THE PERITONEAL CAVITY.
== END 2017-09-16 20:10 | disposition home or self-care (01) ==
LOC: EC 15:40
DX: K43.9 Ventral hernia without obstruction or gangrene (principal); G89.29 Other chronic pain; Z79.1 Long term (current) use of non-steroidal anti-inflammatories (NSAID); Z79.891 Long term (current) use of opiate analgesic; Z79.899 Other long term (current) drug therapy; Z90.49 Acquired absence of other specified parts of digestive tract
CPT/HCPCS: 36415; 80053; 82150; 83605; 83690; 85025; 81003; 87086; 74177; 99284; 96374; 96361; J2270; Q9967

== ENCOUNTER → 2018-01-19 | Outpatient (CLI) | payer OTHER ==
[2018-01-19 15:06] LABS: Basophils % (A) 1 %; Eosinophils # (A) 0.2 k/uL (0-0.7); Eosinophils % (A) 4 %; HCT 42.9 % (39.0-53.0); Lymphocytes % (A) 38 %; MCH 31.9 pg (25.0-35.0); MCHC 32.7 g/dL (31.0-37.0); MCV 97.5 fL (80.0-100.0); Mean Platelet Volume 7.5; Monocytes # (A) 0.4 k/uL (0-1.0); Monocytes % (A) 7 %; Neutrophils # (A) 2.6 k/uL (1.3-7.7); Neutrophils % (A) 49 %; Platelet Count 192 k/uL (150-450); RDW 13.2 % (11.5-15.5); WBC 5.3 k/uL (3.8-10.6)
== END | disposition home or self-care (01) ==
LOC: LABPAT 13:42
PROVIDERS: ATTEND Surgery
DX: Z01.818 Encounter for other preprocedural examination (principal); K43.0 Incisional hernia with obstruction, without gangrene; F17.210 Nicotine dependence, cigarettes, uncomplicated; Z01.812 Encounter for preprocedural laboratory examination
CPT/HCPCS: 36415; 85025; 93005

== ENCOUNTER 2018-01-23 06:45 | Observation (INO) | payer OTHER ==
[2018-01-16 15:33] VITALS: BMI 28.8
[~2018-01-23 06:45] MED LIST changes: +HEPARIN SODIUM,PORCINE 5,000 UNIT/ML 1 ML VIAL SQ ONE; -LACTATED RINGERS 1,000 ML IV SCH; +ceFAZolin IN SWFI 2 GM/20 ML SYRINGE IVP ONE
[2018-01-23] MEDS: LACTATED RINGERS 1,000 ML IV SCH (06:55)
[2018-01-23] MEDS ORDERED: LIDOCAINE 1% 20 ML VIAL (10MG/ML) FOR IV START INTRADERMA ONE (06:56)
[2018-01-23] MEDS ORDERED: ONDANSETRON 4 MG/2 ML VIAL IVP ONE (07:12)
[2018-01-23] MEDS ORDERED: DEXAMETHASONE SOD PHOS (MDV) 100 MG/10 ML VIAL IV ONE (07:12)
[2018-01-23] MEDS ORDERED: BUPIVACAIN-EPI 0.25%-1:200,000 30 ML VIAL SQ ONE ×3 (07:40→08:29)
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
[2018-01-23] MEDS ORDERED: fentaNYL (PF) 50 MCG/ML 2 ML AMP ONE (07:53)
[2018-01-23] MEDS ORDERED: SUCCINYLCHOLINE CHLORIDE 100 MG/5 ML SYR IV ONE (07:53)
[2018-01-23] MEDS ORDERED: MIDAZOLAM 2 MG/2 ML VIAL ONE (07:53)
[2018-01-23] MEDS ORDERED: KETOROLAC 30 MG/ML 1 ML VIAL ONE (07:53)
[2018-01-23] MEDS ORDERED: LIDOCAINE 1% INJ 10MG/ML (20 ML MDV) ONE (07:53)
[2018-01-23] MEDS ORDERED: ROCURONIUM BROMIDE 10 MG/ML 10 ML VIAL IV ONE (07:53)
[2018-01-23] MEDS ORDERED: GLYCOPYRROLATE 0.2 MG/ML 2 ML VIAL ONE (07:53)
[2018-01-23] MEDS ORDERED: NEOSTIGMINE 1 MG/ML 10 ML VIAL ONE (07:53)
[2018-01-23] MEDS ORDERED: PROPOFOL 10 MG/ML 20 ML VIAL IV ONE (07:53)
[2018-01-23] MEDS ORDERED: LACTATED RINGERS 1,000 ML IV ONE (09:14)
[2018-01-23] MEDS ORDERED: METOCLOPRAMIDE 5 MG/ML 2 ML VIAL IVP PRN (09:30)
[2018-01-23] MEDS ORDERED: NALOXONE 0.4 MG/ML 1 ML VIAL IV PRN (09:30)
[2018-01-23] MEDS ORDERED: ONDANSETRON 4 MG/2 ML VIAL IVP PRN (09:30)
[2018-01-23] MEDS ORDERED: ACETAMINOPHEN IV (For NPO) 1,000 MG in EMPTY BAG 1 BAG IVPB ONE (09:30)
[2018-01-23] MEDS: MORPHINE SULFATE 2 MG/ML SYRINGE IV PRN ×5 (09:40→10:04)
[2018-01-23] MEDS: MEPERIDINE 50 MG/ML SYRINGE IVP ONE ×2 (09:51→10:06)
--- NOTE | 2018-01-23 10:07 | P.OP ---
Date of Procedure: 01/23/18 Preoperative Diagnosis: Incisional hernia Postoperative Diagnosis: Extensive adhesions Incisional hernia Umbilical hernia Procedure(s) Performed: Diagnostic laparoscopy Lysis of extensive adhesions Repair of incisional hernia with mesh Repair of umbilical hernia Anesthesia: ROBERTO Surgeon: Jose Myles Estimated Blood Loss (ml): 20 Pathology: none sent Condition: stable Disposition: PACU Description of Procedure: The patient's placed on the operating table in the supine position. He received general anesthesia. His abdomen was prepped and draped in the usual sterile fashion. A 5 mm skin incision was made in the left upper quadrant. Using a optical trocar under direct visualization the perineal cavity was entered. The abdomen was insufflated. There were dense adhesions preventing insufflation the abdomen. At this point a another 5 mm trochars placed in the left lateral position and the pleural cavity is entered. The abdomen was insufflated. The laparoscope was placed into the pleural cavity. There were extensive adhesions noted throughout the perineal cavity. At this point it was decided to convert the procedure to an open procedure. Trochars withdrawn. The skin was incised through the previously midline scar. Using cautery the abdominal wall was dissected. The fascia was opened and approximately 20 minutes of operative time used to lyse extensive adhesions. The patient was also found have an umbilical hernia. The incisional hernia was found. And then the incisional hernia was closed with 0 Ethibond suture. The ventral light ST mesh was then secured with a secure strap tacker. The fascia and umbilical hernia was closed using looped #1 PDS suture. Skin was closed autumn. Patient was sent to recovery room stable condition.
[2018-01-23] MEDS: HYDROmorphone 1 MG/ML 1 ML SYRINGE IVP ONE ×2 (10:32→10:41)
[2018-01-23] MEDS: LACTATED RINGERS 1,000 ML IV ONE ×2 (11:22→15:37)
[2018-01-23] MEDS: HYDROmorphone 1 MG/ML 1 ML SYRINGE IVP PRN ×2 (11:46→14:59)
[2018-01-23] MEDS ORDERED: DIAZEPAM 5 MG TAB PO PRN (12:06)
[2018-01-23] MEDS: MORPHINE SULFATE ER 60 MG TABLET PO SCH ×2 (12:47→21:06)
[2018-01-23] MEDS: HYDROcodone/APAP 5-325MG 1 EACH TAB PO PRN (12:49)
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
[2018-01-23] MEDS: oxyCODONE ER 20 MG TAB.ER.12H PO PRN (17:18)
[2018-01-23] MEDS ORDERED: oxyCODONE ER 20 MG TAB.ER.12H PO SCH (21:00)
[2018-01-23] MEDS: DOCUSATE 100 MG CAP PO SCH (21:11)
--- NOTE | 2018-01-23 23:02 | CONS ---
CONSULTATION REASON FOR CONSULTATION: Advice regarding DJD and anxiety and medications, requested by Dr. Myles. HISTORY OF PRESENT ILLNESS: This 57-year-old gentleman with a past medical history of DJD, history of back pain, failed back syndrome, anxiety, depression, PTSD, being followed by Claudia Carmona in the outpatient setting, underwent a diagnostic laparoscopy and lysis of extensive adhesions, repair of incisional hernia with mesh and repair of umbilical hernia by Dr. Myles. Patient complains of severe pain at this time. There is no history of any fever, rigor or chills. No history of headache, loss of consciousness. No chest pain, palpitations. PAST MEDICAL HISTORY: 1. History of DJD. 2. History of chronic back pain. 3. History of anxiety. 4. Depression. 5. PTSD. MEDICATIONS: 1. OxyContin 20 mg b.i.d. p.r.n. 2. Prilosec 20 mg b.i.d. 3. MS Contin 60 mg p.o. b.i.d. 4. Ibuprofen 600 mg p.o. t.i.d. 5. Valium 10 mg b.i.d. p.r.n. ALLERGIES: NONE. FAMILY HISTORY: No history of heart disease or strokes in the family. SOCIAL HISTORY: History of smoking, continuing. No history of alcohol intake. No substance abuse. REVIEW OF SYSTEMS: ENT: No diminished hearing. No diminished vision. CARDIOVASCULAR SYSTEM: No angina, palpitations. RESPIRATORY SYSTEM: No cough, hemoptysis. GI: As mentioned earlier. : No dysuria or retention. NERVOUS SYSTEM: No numbness, weakness. ALLERGY/IMMUNOLOGY: No asthma, hayfever. MUSCULOSKELETAL: As mentioned earlier. HEMATOLOGY/ONCOLOGY: No history of anemia. ENDOCRINE: No history of diabetes, hypothyroidism. CONSTITUTIONAL: As mentioned earlier. DERMATOLOGY: Negative. RHEUMATOLOGY: Negative. PSYCHIATRY: As mentioned earlier. PHYSICAL EXAMINATION: Patient alert and oriented x3. Pulse is 104, blood pressure 135/77, respiration 20, temperature 97.3, pulse ox 94% on 2 L. HEENT: Conjunctivae normal. Oral mucosa moist. NECK: No jugular venous distention. No carotid bruit. No lymph node enlargement. CARDIOVASCULAR SYSTEM: S1, S2 muffled. RESPIRATORY SYSTEM: Breath sounds diminished at the bases. A few scattered rhonchi. No crackles. ABDOMEN: Soft. Status post surgery. LEGS: No edema. No swelling. NERVOUS SYSTEM: No focal deficit. LABS: Labs which were done previously show CBC and BMP within normal limits. ASSESSMENT: 1. Status post diagnostic laparoscopy with lysis of extensive adhesions and repair of incisional hernia with mesh and repair of umbilical hernia. 2. Chronic pain syndrome. 3. History of degenerative joint disease. 4. History of failed back syndrome. 5. Appendectomy. 6. History of anxiety, depression, post-traumatic stress disorder. 7. History of nicotine dependence. RECOMMENDATIONS AND DISCUSSION: In this 57-year-old gentleman who presented with multiple medical problems, we will monitor the patient closely, continue the current management, continue symptomatic treatment. I recommend resuming the home dose of long-acting pain medications and continue to monitor. Otherwise, DVT prophylaxis. Symptomatic treatment. Incentive spirometry. Will follow the patient closely with you. The patient may be asked to follow up with a primary physician closely. Thank you, Dr. Myles, for letting us participate in the care of this patient. MMJEYL / BEUAN: [id number] /
[2018-01-24] MEDS: HYDROmorphone 1 MG/ML 1 ML SYRINGE IVP PRN (01:37)
[2018-01-24] MEDS: LACTATED RINGERS 1,000 ML IV SCH (03:39)
[2018-01-24 04:52] VITALS: RESP 18
[2018-01-24] MEDS: DOCUSATE 100 MG CAP PO SCH (07:39)
[2018-01-24] MEDS: HYDROcodone/APAP 5-325MG 1 EACH TAB PO PRN (07:39)
[2018-01-24] MEDS ORDERED: PANTOPRAZOLE 40 MG/10 ML VIAL IV SCH (09:00)
[2018-01-24] MEDS ORDERED: ENOXAPARIN 40 MG/0.4 ML SYRINGE SQ SCH (09:00)
[2018-01-24] MEDS: MORPHINE SULFATE ER 60 MG TABLET PO SCH (09:26)
[2018-01-24] MEDS: oxyCODONE ER 20 MG TAB.ER.12H PO PRN (09:38)
[2018-01-24 10:06] LABS: Basophils % (A) 0 %; Eosinophils % (A) 0 %; HCT 34.6 % (39.0-53.0); HGB 12.2 gm/dL (13.0-17.5); Lymphocytes # (A) 1.5 k/uL (1.0-4.8); Lymphocytes % (A) 20 %; MCH 33.3 pg (25.0-35.0); MCHC 35.1 g/dL (31.0-37.0); MCV 94.8 fL (80.0-100.0); Mean Platelet Volume 7.5; Monocytes # (A) 0.4 k/uL (0-1.0); Monocytes % (A) 6 %; Neutrophils # (A) 5.1 k/uL (1.3-7.7); Neutrophils % (A) 72 %; Platelet Count 141 k/uL (150-450); RBC 3.65 m/uL (4.30-5.90); WBC 7.2 k/uL (3.8-10.6)
[2018-01-24 10:28] LABS: Anion Gap 7 mmol/L; Blood Urea Nitrogen 16 mg/dL (9-20); Calcium 8.6 mg/dL (8.4-10.2); Carbon Dioxide 30 mmol/L (22-30); Chloride 102 mmol/L (98-107); Glucose 110 mg/dL (74-99); Potassium 4.1 mmol/L (3.5-5.1); Sodium 139 mmol/L (137-145)
--- NOTE | 2018-01-24 10:36 | P.DS ---
Providers Date of admission: 01/23/18 09:30 Expected date of discharge: 01/24/18 Attending physician: Jose Myles Consults: 01/23/18 09:30 Consult Physician Routine Consulting Provider: Phuong Ruelas Consult Reason/Comments: Medical management Do you want consulting provider notified?: Yes Primary care physician: Bella Carmona Hospital Course: On the day of admission underwent an elective laparoscopic robotic system repair of incisional hernia. Patient had developed a 5 cm incisional hernia located on the left side of the midline abdominal scar 23 of January underwent repair of incisional hernia with mesh diagnostic laparoscopic and license of extensive adhesions. Postop no events. Patient was seen by Dr. lee who is the patient's pain management physician. Patient has chronic pain that is managed by Dr. lee . Patient was to keep scheduled appointment on at [address] Lee. Patient has chronic pain management and should resume pain medication upon discharge as ordered by Dr. Lee Physical occupational therapy eval no home needs identified patient lives with daughter who does provide assistance as needed Impression discharge diagnoses Medically debilitated Chronic back pain Present on admission 5 cm incisional hernia located left side of midline scar Status post diagnostic laparoscopy with lysis of adhesions extensive repair of umbilical hernia repair of incisional hernia with mesh The above impression and plan of care have been discussed and directed by signing physician. Helena Hopkins nurse practitioner acting as scribe for signing physician. Plan - Discharge Summary New Discharge Prescriptions: Continue Omeprazole [PriLOSEC] 20 mg PO BID Diazepam [Valium] 10 mg PO BID PRN PRN Reason: Anxiety Ibuprofen 600 mg PO TID Morphine Sulfate ER [Ms Contin] 60 mg PO BID oxyCODONE ER [OxyCONTIN] 20 mg PO Q12HR PRN PRN Reason: Breakthrough Pain Discharge Medication List Diazepam [Valium] 10 mg PO BID PRN 08/14/13 [History] Omeprazole [PriLOSEC] 20 mg PO BID 08/14/13 [History] Ibuprofen 600 mg PO TID 06/16/14 [History] Morphine Sulfate ER [Ms Contin] 60 mg PO BID 09/16/17 [History] oxyCODONE ER [OxyCONTIN] 20 mg PO Q12HR PRN 01/16/18 [History] Follow up Appointment(s)/Referral(s): Jose Myles MD [STAFF PHYSICIAN] - 01/30/18 2:20 pm Keyur Lee MD [STAFF PHYSICIAN] - 01/25/18 Activity/Diet/Wound Care/Special Instructions: No tub bath for six weeks. Shower daily. No lifting over 10 pounds for the next 2 weeks. To not remove surgical dressing until seen in the follow-up surgical visit or dressings fall off May use ice packs to surgical site. No driving while taking narcotic for pain. Discharge Disposition: HOME SELF-CARE
[2018-01-24 12:34] VITALS: BP 155/84; PULSE 67; TEMP 97.6
== END 2018-01-24 13:40 | disposition home or self-care (01) ==
LOC: OR 06:45 → 3NMEDONC 09:30 → INTOOBSV 09:30 → 3NMEDONC 10:32 → OR 14:06 → UNDODISIN 01-24 13:40
PROVIDERS: ADMIT Surgery; ATTEND Surgery
PROC: 0WUF0JZ Supplement Abdominal Wall with Synthetic Substitute, Open Approach (ICD-10-PCS; 2018-01-23)
PROC: 0WQF0ZZ Repair Abdominal Wall, Open Approach (ICD-10-PCS; 2018-01-23)
PROC: 0DNW0ZZ Release Peritoneum, Open Approach (ICD-10-PCS; principal; 2018-01-23 08:00)
DX: K43.2 Incisional hernia without obstruction or gangrene (principal); K42.9 Umbilical hernia without obstruction or gangrene; K66.0 Peritoneal adhesions (postprocedural) (postinfection); M19.90 Unspecified osteoarthritis, unspecified site; F17.290 Nicotine dependence, other tobacco product, uncomplicated; K21.9 Gastro-esophageal reflux disease without esophagitis; R53.81 Other malaise; F41.9 Anxiety disorder, unspecified; M96.1 Postlaminectomy syndrome, not elsewhere classified; G89.4 Chronic pain syndrome; M54.5 Low back pain; L28.0 Lichen simplex chronicus; F32.9 Major depressive disorder, single episode, unspecified; F43.10 Post-traumatic stress disorder, unspecified; Z53.31 Laparoscopic surgical procedure converted to open procedure; Z79.1 Long term (current) use of non-steroidal anti-inflammatories (NSAID); Z79.891 Long term (current) use of opiate analgesic; Z79.899 Other long term (current) drug therapy; Z90.49 Acquired absence of other specified parts of digestive tract; Z87.442 Personal history of urinary calculi
CPT/HCPCS: 49560; 49568; 97162; 86900; 86901; 80048; 85025; 86850; G0378 ×2; C1781; J2250; J1644; J2710; J2175; J2405; J2001; J1650; J3010; J1885; J2270; J1170 ×2; J1100; J0330; J2704; C9113; J0690

== ENCOUNTER 2018-01-25 20:51 | Observation (INO) | payer OTHER ==
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
[2018-01-25 22:38] LABS: Basophils % (A) 0 %; Eosinophils # (A) 0.1 k/uL (0-0.7); Eosinophils % (A) 2 %; HCT 37.8 % (39.0-53.0); Lymphocytes # (A) 1.2 k/uL (1.0-4.8); Lymphocytes % (A) 17 %; MCH 32.6 pg (25.0-35.0); MCHC 34.3 g/dL (31.0-37.0); MCV 94.9 fL (80.0-100.0); Mean Platelet Volume 7.2; Monocytes # (A) 0.5 k/uL (0-1.0); Monocytes % (A) 7 %; Neutrophils # (A) 5.2 k/uL (1.3-7.7); Neutrophils % (A) 71 %; Platelet Count 136 k/uL (150-450); RBC 3.98 m/uL (4.30-5.90); WBC 7.3 k/uL (3.8-10.6)
[2018-01-25 22:49] LABS: ALT 37 U/L (21-72); AST 32 U/L (17-59); Albumin 4.1 g/dL (3.5-5.0); Alkaline Phosphatase 66 U/L (38-126); Anion Gap 9 mmol/L; Blood Urea Nitrogen 12 mg/dL (9-20); Calcium 8.8 mg/dL (8.4-10.2); Carbon Dioxide 31 mmol/L (22-30); Chloride 99 mmol/L (98-107); Glucose 107 mg/dL (74-99); Potassium 3.5 mmol/L (3.5-5.1); Sodium 139 mmol/L (137-145); Total Bilirubin 1.6 mg/dL (0.2-1.3); Total Protein 6.9 g/dL (6.3-8.2)
--- NOTE | 2018-01-25 23:05 | XR ---
EXAMINATION TYPE: XR chest 2V DATE OF EXAM: 01/25/2018 COMPARISON: Today HISTORY: Fever TECHNIQUE: Frontal and lateral views of the chest are obtained. FINDINGS: There is some patchy infiltrate and atelectasis at the right lung base. The other lung fie lds are fairly clear. There is no heart failure. Heart size is normal. There is no pleural effusion. Bony thorax is intact. IMPRESSION: There is increasing right lower lobe infiltrate and atelectasis compared to exam earlier today.
[2018-01-25 23:19] LABS: Amylase 56 U/L (30-110); Lipase 15 U/L (23-300)
[2018-01-25] MEDS ORDERED: LEVOFLOXACIN 750MG-D5W PMX 750 MG in DEXTROSE/WATER 1 150ML.BAG IVPB STA (23:23)
[2018-01-25] MEDS ORDERED: PIPERACILLIN-TAZOBACTAM 3.375 GM in SODIUM CHLORIDE 0.9% 100 ML IVPB STA (23:23)
[2018-01-25] MEDS ORDERED: HYDROmorphone 1 MG/ML 1 ML SYRINGE IVP PRN (23:46)
[2018-01-25] MEDS ORDERED: NALOXONE 0.4 MG/ML 1 ML VIAL IV PRN (23:46)
[2018-01-25] MEDS ORDERED: ACETAMINOPHEN IV (For NPO) 1,000 MG in EMPTY BAG 1 BAG IVPB PRN (23:48)
[2018-01-25] MEDS: SODIUM CHLORIDE 0.9% 500 ML 500 ML IV SCH ×2 (23:56→23:57)
--- NOTE | 2018-01-26 02:01 | CT ---
EXAMINATION TYPE: CT abdomen pelvis w con DATE OF EXAM: 01/26/2018 COMPARISON: 09/16/2017 HISTORY: abdominal pain CT DLP: 1146.6 mGycm Automated exposure control for dose reduction was used. TECHNIQUE: Helical acquisition of images was performed from the lung bases through the pelvis. CONTRAST: Performed without Oral Contrast and with IV Contrast, patient injected with 100mL mL of Isovue 300. FINDINGS: There is some patchy atelectasis at the lung bases and more on the right side. There is no pleural ef fusion. There is probably some fatty infiltration of the liver. There is no pericardial effusion. Spl een appears normal. There is no evidence of a pancreatic mass. There are clips from cholecystectomy. Bile ducts are not dilated. There is no adrenal mass. Kidneys show satisfactory contrast opacification. There is no hydronephrosi s. Ureters are not dilated. There is no retroperitoneal adenopathy. Bladder distends smoothly. There is no inguinal hernia. There is no free fluid in the pelvis. There is midline incision with skin stap les in the anterior abdomen. There is 4 x 2 cm area of increased density in the subcutaneous fat over the left anterior mid abdomen with small air bubble. Is not clear if this is a persistent ventral he rnia with incarceration that is evident on the old CT scan. This could be surgical. There is mild sub cutaneous edema over the lower abdomen posteriorly. I see no mesenteric edema. There is no mesenteric adenopathy. There is no sign of appendicitis. There is a dilated fluid-filled loop of small bowel in the mid abdomen. This measures up to 4 cm. Proximal small bowel is not dilated. The lumbar vertebra have normal alignment. There is degenerative disc space narrowing throughout the lumbar spine with spur formation. The facet joints are intact. I see no compression fracture. The bon y pelvis is intact. IMPRESSION: THERE IS SUBCUTANEOUS DENSITY TO THE LEFT OF MIDLINE ON THE LEFT ANTERIOR ABDOMEN THAT IS PROBABLY A PERSISTENT INCARCERATED SMALL BOWEL HERNIA. THERE IS LOCALIZED DILATED SMALL BOWEL THAT COULD BE RELA SOLOMON TO A PARTIAL OBSTRUCTION THAT IS ALSO EVIDENT ON THE OLD CT SCAN. THERE ARE SKIN BIN IN THE MIDLINE APPARENTLY RELATED TO UMBILICAL HERNIA REPAIR. CORRELATION WITH THE SURGICAL HISTORY IS NEEDED. THERE IS NEW PATCHY ATELECTASIS AT THE LUNG BASES COMPARED TO OLD EXAM.
[2018-01-26] MEDS: SODIUM CHLORIDE 0.9% 1,000 ML IV SCH ×2 (02:08→11:13)
[2018-01-26] MEDS: PIPERACILLIN-TAZOBACTAM 3.375 GM in SODIUM CHLORIDE 0.9% 100 ML IVPB SCH ×3 (02:12→11:14)
[2018-01-26 03:54] VITALS: RESP 18
[2018-01-26] MEDS ORDERED: DIAZEPAM 5 MG TAB PO PRN (04:08)
[2018-01-26 04:29] VITALS: BMI 28.8
[2018-01-26] MEDS: oxyCODONE ER 20 MG TAB.ER.12H PO PRN ×2 (04:48→08:02)
[2018-01-26 08:33] VITALS: BP 134/83; PULSE 69; TEMP 97.7
[2018-01-26] MEDS ORDERED: PANTOPRAZOLE 40 MG TABLET PO SCH (09:00)
[2018-01-26] MEDS ORDERED: MORPHINE SULFATE ER 60 MG TABLET PO SCH (09:00)
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
--- NOTE | 2018-01-26 15:46 | P.DS ---
Providers Date of admission: 01/25/18 23:27 Attending physician: Phuong Ruelas Consults: 01/25/18 23:46 Consult Physician Stat Consulting Provider: Jose Myles Consult Reason/Comments: erythema/drainage from surgical incision, Do you want consulting provider notified?: Yes Primary care physician: Bella Carmona Hospital Course: Please refer to my HPI Patient Condition at Discharge: Good Plan - Discharge Summary New Discharge Prescriptions: New Doxycycline Monohydrate [Monodox] 100 mg PO BID 3 Days #6 cap No Action Omeprazole [PriLOSEC] 20 mg PO DAILY Diazepam [Valium] 10 mg PO BID PRN PRN Reason: Anxiety Ibuprofen 600 mg PO TID Morphine Sulfate ER [Ms Contin] 60 mg PO BID oxyCODONE ER [OxyCONTIN] 20 mg PO Q12HR PRN PRN Reason: Breakthrough Pain Discharge Medication List Diazepam [Valium] 10 mg PO BID PRN 08/14/13 [History] Omeprazole [PriLOSEC] 20 mg PO DAILY 08/14/13 [History] Ibuprofen 600 mg PO TID 06/16/14 [History] Morphine Sulfate ER [Ms Contin] 60 mg PO BID 09/16/17 [History] oxyCODONE ER [OxyCONTIN] 20 mg PO Q12HR PRN 01/16/18 [History] Doxycycline Monohydrate [Monodox] 100 mg PO BID 3 Days #6 cap 01/26/18 [Rx] Follow up Appointment(s)/Referral(s): Bella Carmona MD [Primary Care Provider] - 3 Days Discharge Disposition: HOME SELF-CARE
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
[2018-01-26] MEDS ORDERED: LEVOFLOXACIN 750MG-D5W PMX 750 MG in DEXTROSE/WATER 1 150ML.BAG IVPB SCH (23:00)
== END 2018-01-26 13:55 | disposition home or self-care (01) ==
LOC: EC 20:51 → 1SOBS 23:27
PROVIDERS: ADMIT Hospitalist; ATTEND Hospitalist
DX: J20.9 Acute bronchitis, unspecified (principal); J98.11 Atelectasis; G89.4 Chronic pain syndrome; M54.5 Low back pain; F17.290 Nicotine dependence, other tobacco product, uncomplicated; F11.20 Opioid dependence, uncomplicated; Z87.442 Personal history of urinary calculi; Z90.49 Acquired absence of other specified parts of digestive tract; R53.81 Other malaise; F43.10 Post-traumatic stress disorder, unspecified; F32.9 Major depressive disorder, single episode, unspecified; F41.9 Anxiety disorder, unspecified; Z79.899 Other long term (current) drug therapy; Z79.1 Long term (current) use of non-steroidal anti-inflammatories (NSAID); E66.9 Obesity, unspecified; Z68.28 Body mass index [BMI] 28.0-28.9, adult; Z98.890 Other specified postprocedural states
CPT/HCPCS: 96366 ×2; 96365; 96367; 96375; 99285; 36415; 80053; 82150; 83605; 83690; 85025; 87040; 71046; 74177; G0378 ×2; J2543; J1170; J1956

== ENCOUNTER 2019-03-09 11:42 | Emergency (ER) | payer OTHER ==
[2019-03-09] MEDS ORDERED: HYDROmorphone 1 MG/ML 1 ML SYRINGE IVP STA ×2 (12:09→13:06)
[2019-03-09] MEDS ORDERED: SODIUM CHLORIDE 0.9% 1,000 ML IV ONE (12:09)
[2019-03-09] MEDS ORDERED: KETOROLAC 30 MG/ML 1 ML VIAL IVP STA (12:09)
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
[2019-03-09 13:01] LABS: Basophils % (A) 1 %; Eosinophils # (A) 0.3 k/uL (0-0.7); Eosinophils % (A) 5 %; HCT 43.5 % (39.0-53.0); HGB 15.2 gm/dL (13.0-17.5); Lymphocytes # (A) 2.2 k/uL (1.0-4.8); Lymphocytes % (A) 35 %; MCH 33.2 pg (25.0-35.0); MCHC 34.8 g/dL (31.0-37.0); MCV 95.4 fL (80.0-100.0); Mean Platelet Volume 8.1; Monocytes # (A) 0.5 k/uL (0-1.0); Monocytes % (A) 8 %; Neutrophils # (A) 3.2 k/uL (1.3-7.7); Neutrophils % (A) 49 %; Platelet Count 173 k/uL (150-450); RBC 4.56 m/uL (4.30-5.90); RDW 12.5 % (11.5-15.5); WBC 6.5 k/uL (3.8-10.6)
--- NOTE | 2019-03-09 13:03 | CT ---
EXAMINATION TYPE: CT abdomen pelvis wo con DATE OF EXAM: 03/09/2019 COMPARISON: Previous study dated 01/26/2018. HISTORY: Back pain CT DLP: 958.9 mGycm Automated exposure control for dose reduction was used. FINDINGS: Visualized portions of the lungs are clear. There is no pleural or pericardial fluid. The h eart is not enlarged. Within the abdomen, the gallbladder is been removed. The liver and spleen appear normal. Both adrenal glands appear normal. Mild right-sided hydronephrosis. There is a 3 mm calcification at the level of the UVJ on the right. There is a 5 mm nonobstructing calculus in the posterior pole calyx on the left. The pancreas is unremarkable. There is no significant retroperitoneal, iliac or inguinal adenopathy. Bladder is not distended. There is no significant diverticular change is no radiographic evidence of diverticulitis. The append ix is not seen with certainty. Small bowel loops are of normal caliber. There is no free fluid and no free air identified. There is degenerative disc disease and hypertrophic spondylosis throughout the spine. IMPRESSION: 1. DISTAL RIGHT URETERIC CALCULUS CAUSING MILD TO MODERATE HYDRONEPHROSIS AND HYDROURETER ON THE RIGH T. 2. NONOBSTRUCTING LEFT RENAL CALCULUS. 3. DEGENERATIVE CHANGE WITHIN THE SPINE.
--- NOTE | 2019-03-09 13:04 | XR ---
EXAMINATION TYPE: XR KUB , 2 VIEWS DATE OF EXAM ORDERED: 03/09/2019 HISTORY: Right flank pain. COMPARISON: Previous study dated 08/09/2016. FINDINGS: Lung bases are clear. Within the abdomen, the gallbladder is been removed. The abdominal gas pattern is within normal limit s. There is no evidence of obstruction or free air. No unusual calcifications are seen. There are mod erate degenerative changes within the spine. IMPRESSION: NO ACUTE INTRA-ABDOMINAL ABNORMALITY.
[2019-03-09 13:11] LABS: Albumin 4.3 g/dL (3.5-5.0); Calcium 9.1 mg/dL (8.4-10.2); Potassium 4.1 mmol/L (3.5-5.1); Total Bilirubin 0.9 mg/dL (0.2-1.3); Total Protein 7.2 g/dL (6.3-8.2)
[2019-03-09 13:28] LABS: Appearance,Urine Clear (Clear); Bilirubin,Urine Negative (Negative); Blood,Urine Trace (Negative); Color,Urine Yellow; Glucose,Urine (UA) Negative (Negative); Hyaline Casts,Urine 1 /lpf (0-2); Ketones,Urine Negative (Negative); Leukocyte Esterase,Urine Negative (Negative); Mucus,Urine Occasional /hpf; Nitrite,Urine Negative (Negative); Protein,Urine Negative (Negative); RBC,Urine 2 /hpf (0-5); Urobilinogen,Urine <2.0 mg/dL (<2.0); WBC,Urine <1 /hpf (0-5)
[2019-03-09] MEDS ORDERED: MORPHINE SULFATE 4 MG/ML SYRINGE IVP STA ×2 (13:57→14:40)
[2019-03-09 15:33] VITALS: BP 116/82; PULSE 69; RESP 16; TEMP 98.2
== END 2019-03-09 15:33 | disposition home or self-care (01) ==
LOC: EC 11:42
DX: N13.2 Hydronephrosis with renal and ureteral calculous obstruction (principal); G89.29 Other chronic pain; F17.200 Nicotine dependence, unspecified, uncomplicated; Z79.1 Long term (current) use of non-steroidal anti-inflammatories (NSAID); Z79.891 Long term (current) use of opiate analgesic; Z79.899 Other long term (current) drug therapy; Z90.49 Acquired absence of other specified parts of digestive tract; Z53.20 Procedure and treatment not carried out because of patient's decision for unspecified reasons
CPT/HCPCS: 36415; 80053; 83605; 85025; 81001; 74018; 74176; 99284; 96374; 96375 ×2; 96376 ×2; 96361; J2270; J1885; J1170

== ENCOUNTER 2019-04-06 02:01 | Emergency (ER) | payer OTHER ==
[2019-04-06 02:10] VITALS: RESP 18
[2019-04-06] MEDS ORDERED: SODIUM CHLORIDE 0.9% 1,000 ML IV STA (02:12)
[2019-04-06] MEDS ORDERED: ONDANSETRON 4 MG/2 ML VIAL IVP STA (02:12)
[2019-04-06] MEDS ORDERED: KETOROLAC 30 MG/ML 1 ML VIAL IVP STA (02:12)
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
[2019-04-06 02:57] LABS: Basophils # (A) 0.1 k/uL (0-0.2); Basophils % (A) 1 %; Eosinophils # (A) 0.3 k/uL (0-0.7); Eosinophils % (A) 5 %; HCT 42.3 % (39.0-53.0); HGB 14.4 gm/dL (13.0-17.5); Lymphocytes # (A) 2.4 k/uL (1.0-4.8); Lymphocytes % (A) 35 %; MCH 32.4 pg (25.0-35.0); MCHC 34.1 g/dL (31.0-37.0); MCV 95.1 fL (80.0-100.0); Mean Platelet Volume 8.5; Monocytes # (A) 0.5 k/uL (0-1.0); Monocytes % (A) 7 %; Neutrophils # (A) 3.4 k/uL (1.3-7.7); Neutrophils % (A) 49 %; Platelet Count 135 k/uL (150-450); RBC 4.45 m/uL (4.30-5.90); RDW 12.4 % (11.5-15.5); WBC 6.9 k/uL (3.8-10.6)
[2019-04-06 03:01] LABS: ALT 37 U/L (4-49); African American GFR (CKD) >90 (>60 ml/min/1.73 sqM); Albumin 4.1 g/dL (3.5-5.0); Anion Gap 5 mmol/L; Blood Urea Nitrogen 18 mg/dL (9-20); Calcium 8.7 mg/dL (8.4-10.2); Carbon Dioxide 29 mmol/L (22-30); Chloride 103 mmol/L (98-107); Glucose 117 mg/dL (74-99); Non-African American GFR(CKD) >90 (>60 ml/min/1.73 sqM); Sodium 137 mmol/L (137-145); Total Bilirubin 0.7 mg/dL (0.2-1.3); Total Protein 6.7 g/dL (6.3-8.2)
[2019-04-06 03:04] LABS: Appearance,Urine Clear (Clear); Bilirubin,Urine Negative (Negative); Blood,Urine Small (Negative); Color,Urine Yellow; Glucose,Urine (UA) Negative (Negative); Ketones,Urine Negative (Negative); Leukocyte Esterase,Urine Negative (Negative); Mucus,Urine Rare /hpf; Nitrite,Urine Negative (Negative); Protein,Urine Negative (Negative); RBC,Urine 48 /hpf (0-5); Specific Gravity,Urine 1.017 (1.001-1.035); Sperm,Urine Rare /hpf; Squamous Epithelial Cell,Urine <1 /hpf (0-4); WBC,Urine 1 /hpf (0-5)
[2019-04-06] MEDS ORDERED: HYDROmorphone 0.5 MG/0.5 ML SYRINGE IVP STA (03:09)
[2019-04-06 04:04] VITALS: BP 129/86; PULSE 74; TEMP 98
[2019-04-06 04:10] LABS: AST 33 U/L (17-59); Alkaline Phosphatase 87 U/L (38-126); Potassium 4.1 mmol/L (3.5-5.1)
== END 2019-04-06 04:04 | disposition home or self-care (01) ==
LOC: EC 02:01
DX: N20.0 Calculus of kidney (principal); F17.200 Nicotine dependence, unspecified, uncomplicated; Z79.899 Other long term (current) drug therapy
CPT/HCPCS: 99283 ×2; 96374 ×2; 96375 ×3; 96361 ×2; 99284; 36415; 80053; 85025; 81001; J2405; J1885; J1170

== ENCOUNTER 2019-04-06 04:17 | Emergency (ER) | payer OTHER ==
[2019-04-06 04:32] VITALS: BP 162/86; PULSE 90; RESP 20; TEMP 97.8
--- NOTE | 2019-04-06 04:56 | CT ---
EXAMINATION TYPE: CT renal stones wo con DATE OF EXAM: 04/06/2019 COMPARISON: 03/09/2019 HISTORY: left flank pain CT DLP: 935.7 mGycm Automated exposure control for dose reduction was used. Multiple axial sections were obtained from the diaphragm to the floor the pelvis without contrast. Lung bases are clear of consolidation. There is no pleural effusion. Heart size is normal. Liver shows no focal defect. There are clips from cholecystectomy. Spleen is intact. Stomach appears normal. There is no pancreatic mass. Bile ducts are not dilated. There is very minimal small bowel me senteric edema. There is no adrenal mass. Kidneys have normal size and contour. There is mild left-sided hydronephros is. There is 4 mm calculus at the left ureteropelvic junction. Right kidney shows no sign of obstruct ion. Ureters are not dilated. Bladder distends smoothly. There is no inguinal hernia. There is no jayce e fluid in the pelvis. Appendix is not seen. There is no sign of thickened appendix. There is no evidence of a bowel obstruction. There is small umbilical hernia that contains small charli l. Lumbar vertebra have normal alignment. Disc spaces are fairly normal. There is no compression frac ture. Bony pelvis is intact. IMPRESSION: Small obstructing calculus at the left ureteropelvic Junction is a change compared to last exam. Umbi lical hernia without evidence of a bowel obstruction. Unchanged. There is mild small bowel mesenteric edema unchanged.
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
[2019-04-06] MEDS ORDERED: MORPHINE SULFATE 4 MG/ML SYRINGE IVP STA (05:22)
== END 2019-04-06 06:49 | disposition home or self-care (01) ==
LOC: EC 04:17
DX: R10.9 Unspecified abdominal pain (principal); N13.2 Hydronephrosis with renal and ureteral calculous obstruction; F17.200 Nicotine dependence, unspecified, uncomplicated; Z79.899 Other long term (current) drug therapy; Z90.89 Acquired absence of other organs; Z90.49 Acquired absence of other specified parts of digestive tract
CPT/HCPCS: 74150; 99284; 96374; J2270

== ENCOUNTER 2020-06-02 13:16 | Inpatient (IN) | payer OTHER ==
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
--- NOTE | 2020-06-02 15:16 | XR ---
EXAMINATION TYPE: XR chest 2V DATE OF EXAM: 06/02/2020 COMPARISON: 01/15/2018 INDICATION: Cough and shortness of breath TECHNIQUE: Frontal and lateral views of the chest are obtained. FINDINGS: The heart size is normal. The pulmonary vasculature is somewhat prominent. There is mild increased patchy infiltrates within the mid and lower lung avila. IMPRESSION: 1. Mild patchy infiltrate within the mid and lower perihilar regions. Findings are nonspecific. Corre late for bronchitis or atypical pneumonia.
[2020-06-02] MEDS ORDERED: ACETAMINOPHEN TAB 325 MG TAB PO PRN (17:26)
[2020-06-02 18:28] LABS: Basophils % (A) 1 %; Eosinophils % (A) 1 %; HCT 38.9 % (39.0-53.0); HGB 13.9 gm/dL (13.0-17.5); Lymphocytes # (A) 1.1 k/uL (1.0-4.8); Lymphocytes % (A) 23 %; MCH 32.9 pg (25.0-35.0); MCHC 35.7 g/dL (31.0-37.0); MCV 92.4 fL (80.0-100.0); Mean Platelet Volume 7.8; Monocytes # (A) 0.3 k/uL (0-1.0); Monocytes % (A) 6 %; Neutrophils # (A) 3.2 k/uL (1.3-7.7); Neutrophils % (A) 68 %; Platelet Count 134 k/uL (150-450); RBC 4.22 m/uL (4.30-5.90); RDW 12.3 % (11.5-15.5); WBC 4.7 k/uL (3.8-10.6)
[2020-06-02] MEDS: DEXAMETHASONE SOD PHOSPHATE 10 MG/ML 1 ML VIAL IV SCH (18:38)
[2020-06-02 18:41] LABS: ALT 38 U/L (4-49); AST 57 U/L (17-59); African American GFR (CKD) >90 (>60 ml/min/1.73 sqM); Albumin 3.4 g/dL (3.5-5.0); Alkaline Phosphatase 72 U/L (38-126); Anion Gap 9 mmol/L; Blood Urea Nitrogen 13 mg/dL (9-20); Carbon Dioxide 28 mmol/L (22-30); Chloride 97 mmol/L (98-107); Glucose 86 mg/dL (74-99); LDH 1068 U/L (313-618); Magnesium 1.9 mg/dL (1.6-2.3); Non-African American GFR(CKD) >90 (>60 ml/min/1.73 sqM); Potassium 3.2 mmol/L (3.5-5.1); Sodium 134 mmol/L (137-145); Total Bilirubin 1.1 mg/dL (0.2-1.3); Total Protein 6.1 g/dL (6.3-8.2)
[2020-06-02 18:45] LABS: Partial Thromboplastin Time 25.6 sec (22.0-30.0); Prothrombin Time 10.3 sec (9.0-12.0)
[2020-06-02 18:49] LABS: D-Dimer 0.79 mg/L FEU (<0.60)
[2020-06-02] MEDS ORDERED: ENOXAPARIN 40 MG/0.4 ML SYRINGE SQ STA (19:11)
[2020-06-02] MEDS ORDERED: NALOXONE 0.4 MG/ML 1 ML VIAL IV PRN (19:41)
[2020-06-02] MEDS ORDERED: oxyCODONE ER 20 MG TAB.ER.12H PO PRN (22:52)
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
[2020-06-03 05:48] LABS: Ferritin 1644.6 ng/mL (22.0-322.0)
[2020-06-03] MEDS: ALBUTEROL HFA INHALER INHALATION PRN ×3 (07:57→17:24)
[2020-06-03] MEDS: PANTOPRAZOLE 40 MG TABLET PO SCH (08:05)
[2020-06-03] MEDS: DEXAMETHASONE SOD PHOSPHATE 10 MG/ML 1 ML VIAL IV SCH (09:34)
[2020-06-03] MEDS: ENOXAPARIN 40 MG/0.4 ML SYRINGE SQ SCH (09:34)
[2020-06-03] MEDS: MORPHINE SULFATE ER 60 MG TABLET PO SCH ×2 (09:35→20:22)
[2020-06-03 09:43] LABS: HGB 13.2 g/dL (13.0-17.0); MCHC 34.7 g/dL (32.0-37.0); Platelet Count 150 X 10*3/uL (140-440); RDW 12.4 % (11.5-14.5); WBC 3.12 X 10*3/uL (4.50-10.00)
[2020-06-03 11:12] LABS: Albumin 3.7 g/dL (3.80-4.90); Albumin/Globulin Ratio 1.76 (1.60-3.17); Anion Gap 7.9 mmol/L (4.00-12.00); Calcium 8.6 mg/dL (8.7-10.3); Carbon Dioxide 31.1 mmol/L (21.6-31.8); Globulin 2.1 g/dL (1.6-3.3); Non-African American GFR(CKD) 95.7 (60.0-200.0); Potassium 4.5 mmol/L (3.5-5.5); Total Bilirubin 0.7 mg/dL (0.2-1.2); Total Protein 5.8 g/dL (6.2-8.2)
--- NOTE | 2020-06-03 12:42 | P.PN ---
Subjective Progress Note Date: 06/03/20 No new complaints, feels overall better than admission. Objective - Vital Signs Vital signs: Vital Signs Temp 98.2 F 06/03/20 11:56 Pulse 64 06/03/20 11:56 Resp 18 06/03/20 11:56 BP 108/62 06/03/20 11:56 Pulse Ox 94 L 06/03/20 11:56 Intake & Output 06/02/20 06/03/20 06/03/20 18:59 06:59 18:59 Output Total 475 Balance -475 Weight 86.183 kg Output: Urine 475 - Exam Gen: awake, alert HEENT: normocephalic, atraumatic, good hearing acuity, moist mucous membranes Resp: good air exchange, breathing comfortably with no accessory muscle use CVS: good distal perfusion x 4, GI: soft, NTTP, ND : no SPT, no CVAT, cisneros catheter not present MSK: no pitting edema, no clubbing Neuro: non-focal, moving all extremities Psych: cooperative, euthymic mood - Labs CBC & Chem 7: 06/03/20 04:36 06/03/20 04:36 Labs: Abnormal Lab Results - Last 24 Hours (Table) 06/02/20 06/02/20 06/02/20 Range/Units 17:27 18:40 18:40 WBC (4.50-10.00) X 10*3/uL RBC 4.22 L (4.30-5.90) m/uL Hct 38.9 L (39.0-53.0) % MCH (27.0-32.0) pg Plt Count 134 L (150-450) k/uL D-Dimer 0.79 H (<0.60) mg/L FEU Sodium 134 L (137-145) mmol/L Potassium 3.2 L (3.5-5.1) mmol/L Chloride 97 L (98-107) mmol/L Creatinine 0.64 L (0.66-1.25) mg/dL Glucose (70-110) mg/dL Calcium 8.0 L (8.4-10.2) mg/dL Ferritin 1644.6 H (22.0-322.0) ng/mL AST (14-35) U/L Lactate Dehydrogenase 1068 H (313-618) U/L C-Reactive Protein 178.0 H (<10.0) mg/L Total Protein 6.1 L (6.3-8.2) g/dL Albumin 3.4 L (3.5-5.0) g/dL Coronavirus (PCR) (Not Detectd) 06/02/20 06/03/20 06/03/20 Range/Units 18:40 04:36 04:36 WBC 3.12 L (4.50-10.00) X 10*3/uL RBC 4.00 L (4.30-5.90) m/uL Hct 38.0 L (39.0-53.0) % MCH 33.0 H (27.0-32.0) pg Plt Count (150-450) k/uL D-Dimer (<0.60) mg/L FEU Sodium (137-145) mmol/L Potassium (3.5-5.1) mmol/L Chloride (98-107) mmol/L Creatinine (0.66-1.25) mg/dL Glucose 169 H (70-110) mg/dL Calcium 8.6 L (8.4-10.2) mg/dL Ferritin (22.0-322.0) ng/mL AST 47 H (14-35) U/L Lactate Dehydrogenase 386 H (313-618) U/L C-Reactive Protein (<10.0) mg/L Total Protein 5.8 L (6.3-8.2) g/dL Albumin 3.70 L (3.5-5.0) g/dL Coronavirus (PCR) Detected A (Not Detectd) Assessment and Plan Assessment: Acute hypoxic respiratory failure Covid pneumonitis Mild hypokalemia Chronic low back pain Mild thrombocytopenia Plan Supportive care Follow up inflammatory markers Decadron IV Supplemental oxygen as needed Pulmonary consultation Replace potassium Follow-up morning labs Contact and droplet precautions Resume MS Contin home medications CODE STATUS: Full code DVT prophylaxis: Lovenox subcu Discussed with: Patient, ER, RN Anticipated length of stay more [address]: home
[2020-06-03 13:32] LABS: Basophils # (A) 0 X 10*3/uL (0.00-0.10); Basophils % (A) 0 %; Eosinophils # (A) 0 X 10*3/uL (0.04-0.35); Eosinophils % (A) 0 %; Lymphocytes # (A) 0.58 X 10*3/uL (0.90-5.00); Lymphocytes % (A) 18.6 %; Monocytes # (A) 0.21 X 10*3/uL (0.20-1.00); Monocytes % (A) 6.7 %; Neutrophils # (A) 2.31 X 10*3/uL (1.80-7.70); Neutrophils % (A) 74.1 %
[2020-06-04] MEDS: ALBUTEROL HFA INHALER INHALATION PRN ×5 (01:19→18:59)
[2020-06-04] MEDS: ENOXAPARIN 40 MG/0.4 ML SYRINGE SQ SCH (08:38)
[2020-06-04] MEDS: MORPHINE SULFATE ER 60 MG TABLET PO SCH ×2 (08:38→20:22)
[2020-06-04] MEDS: PANTOPRAZOLE 40 MG TABLET PO SCH (08:38)
[2020-06-04] MEDS: DEXAMETHASONE SOD PHOSPHATE 10 MG/ML 1 ML VIAL IV SCH (08:39)
--- NOTE | 2020-06-04 15:44 | P.PN ---
Subjective Progress Note Date: 06/04/20 No new complaints. Requests a nebulizer to help cough up sputum. Objective - Vital Signs Vital signs: Vital Signs Temp 98.6 F 06/04/20 13:40 Pulse 61 06/04/20 13:40 Resp 17 06/04/20 13:40 BP 118/67 06/04/20 13:40 Pulse Ox 93 L 06/04/20 13:40 - Exam Gen: awake, alert HEENT: normocephalic, atraumatic, good hearing acuity, moist mucous membranes Resp: good air exchange, breathing comfortably with no accessory muscle use CVS: good distal perfusion x 4, GI: soft, NTTP, ND : no SPT, no CVAT, cisneros catheter not present MSK: no pitting edema, no clubbing Neuro: non-focal, moving all extremities Psych: cooperative, euthymic mood - Labs CBC & Chem 7: 06/03/20 04:36 06/03/20 04:36 Labs: Microbiology - Last 24 Hours (Table) 06/02/20 18:15 Blood Culture - Preliminary Blood No Growth after 24 hours 06/02/20 18:00 Blood Culture - Preliminary Blood No Growth after 24 hours Assessment and Plan Assessment: Acute hypoxic respiratory failure Covid pneumonitis Mild hypokalemia Chronic low back pain Mild thrombocytopenia Plan Supportive care Follow up inflammatory markers Decadron IV Supplemental oxygen as needed Pulmonary consultation Replace potassium Follow-up morning labs Contact and droplet precautions Resume MS Contin home medications CODE STATUS: Full code DVT prophylaxis: Lovenox subcu Discussed with: Patient, ER, RN Anticipated length of stay more [address]: home
[2020-06-05] MEDS: guaiFENesin 600 MG TABLET.ER PO PRN ×2 (02:52→21:03)
[2020-06-05] MEDS: ALBUTEROL HFA INHALER INHALATION PRN ×3 (07:14→16:42)
[2020-06-05] MEDS: MORPHINE SULFATE ER 60 MG TABLET PO SCH ×2 (07:59→20:58)
[2020-06-05] MEDS: DEXAMETHASONE SOD PHOSPHATE 10 MG/ML 1 ML VIAL IV SCH (08:00)
[2020-06-05] MEDS: ENOXAPARIN 40 MG/0.4 ML SYRINGE SQ SCH (08:00)
[2020-06-05] MEDS: PANTOPRAZOLE 40 MG TABLET PO SCH (08:00)
--- NOTE | 2020-06-05 12:06 | P.PN ---
Subjective Progress Note Date: 06/05/20 No new complaints today. Improving overall per patient. Objective - Vital Signs Vital signs: Vital Signs Temp 98.1 F 06/05/20 11:50 Pulse 64 06/05/20 11:50 Resp 16 06/05/20 11:50 BP 121/74 06/05/20 11:50 Pulse Ox 97 06/05/20 11:50 Intake & Output 06/04/20 06/05/20 06/05/20 18:59 06:59 18:59 Intake Total 500 350 Balance 500 350 Intake: Oral 500 350 - Exam Gen: awake, alert HEENT: normocephalic, atraumatic, good hearing acuity, moist mucous membranes Resp: good air exchange, breathing comfortably with no accessory muscle use CVS: good distal perfusion x 4, GI: soft, NTTP, ND : no SPT, no CVAT, cisneros catheter not present MSK: no pitting edema, no clubbing Neuro: non-focal, moving all extremities Psych: cooperative, euthymic mood - Labs CBC & Chem 7: 06/03/20 04:36 06/03/20 04:36 Labs: Microbiology - Last 24 Hours (Table) 06/02/20 18:00 Blood Culture - Preliminary Blood No Growth after 48 hours 06/02/20 18:15 Blood Culture - Preliminary Blood No Growth after 48 hours Assessment and Plan Assessment: Acute hypoxic respiratory failure Covid pneumonitis Mild hypokalemia Chronic low back pain Mild thrombocytopenia Plan Supportive care Follow up inflammatory markers Decadron IV Supplemental oxygen as needed Pulmonary consultation Replace potassium Follow-up morning labs Contact and droplet precautions Resume MS Contin home medications CODE STATUS: Full code DVT prophylaxis: Lovenox subcu Discussed with: Patient, ER, RN Anticipated length of stay more [address]: home
[2020-06-06 05:34] VITALS: PULSE 61
[2020-06-06] MEDS: ALBUTEROL HFA INHALER INHALATION PRN ×2 (08:42→11:21)
[2020-06-06] MEDS: PANTOPRAZOLE 40 MG TABLET PO SCH (08:49)
[2020-06-06] MEDS: MORPHINE SULFATE ER 60 MG TABLET PO SCH (08:49)
[2020-06-06] MEDS: DEXAMETHASONE SOD PHOSPHATE 10 MG/ML 1 ML VIAL IV SCH (08:50)
[2020-06-06] MEDS: ENOXAPARIN 40 MG/0.4 ML SYRINGE SQ SCH (08:50)
[2020-06-06 10:30] VITALS: BP 111/63; RESP 22; TEMP 98.2
--- NOTE | 2020-06-06 12:38 | P.DS ---
Providers Date of admission: 06/02/20 19:41 Expected date of discharge: 06/06/20 Attending physician: Laron Segovia MD Primary care physician: Bella Carmona [facility] Course: Acute hypoxic respiratory failure Covid pneumonitis Mild hypokalemia Chronic low back pain Mild thrombocytopenia 60 year old man with history of chronic low back pain was tested positive for COVID and had mild oxygen requirement. He was provided supportive care, and started on dexamethasone 6mg IV daily. He recovered back to room air within 2 days, and was discharged home in stable condition. He did not require remdesivir, plasma, or actemra. He was prescribed Vit C/D, Zn on discharge for 14 days. Pt will f/u with PCP. Assessment: Gen: awake, alert HEENT: normocephalic, atraumatic, good hearing acuity, moist mucous membranes Resp: good air exchange, breathing comfortably with no accessory muscle use CVS: good distal perfusion x 4, GI: soft, NTTP, ND : no SPT, no CVAT, cisneros catheter not present MSK: no pitting edema, no clubbing Neuro: non-focal, moving all extremities Psych: cooperative, euthymic mood Patient Condition at Discharge: Good Plan - Discharge Summary Discharge Rx Participant: Yes New Discharge Prescriptions: New Zinc 100 mg PO DAILY #28 tablet Ascorbic Acid [Vitamin C] 1,000 mg PO DAILY #14 tablet Cholecalciferol [Vitamin D3 (25 Mcg = 1000 Iu)] 25 mcg PO DAILY #14 tab Continue Omeprazole [PriLOSEC] 20 mg PO DAILY Ibuprofen 600 mg PO TID PRN PRN Reason: Pain Morphine Sulfate ER [Ms Contin] 60 mg PO BID oxyCODONE ER [OxyCONTIN] 20 mg PO Q12HR PRN PRN Reason: Breakthrough Pain guaiFENesin [Mucinex] 600 mg PO BID PRN PRN Reason: Congestion Albuterol Sulfate [Proventil Hfa] 2 puff INHALATION Q4HR PRN PRN Reason: Shortness Of Breath Discharge Medication List Omeprazole [PriLOSEC] 20 mg PO DAILY 08/14/13 [History] Ibuprofen 600 mg PO TID PRN 06/16/14 [History] Morphine Sulfate ER [Ms Contin] 60 mg PO BID 09/16/17 [History] oxyCODONE ER [OxyCONTIN] 20 mg PO Q12HR PRN 01/16/18 [History] Albuterol Sulfate [Proventil Hfa] 2 puff INHALATION Q4HR PRN 06/02/20 [History] guaiFENesin [Mucinex] 600 mg PO BID PRN 06/02/20 [History] Ascorbic Acid [Vitamin C] 1,000 mg PO DAILY #14 tablet 06/06/20 [Rx] Cholecalciferol [Vitamin D3 (25 Mcg = 1000 Iu)] 25 mcg PO DAILY #14 tab 06/06/20 [Rx] Zinc 100 mg PO DAILY #28 tablet 06/06/20 [Rx] Follow up Appointment(s)/Referral(s): Bella Carmona MD [Primary Care Provider] - 1-2 days (office close at time of discharge. Please call to make appointment) Discharge Disposition: HOME SELF-CARE
== END 2020-06-06 13:15 | disposition home or self-care (01) | DRG 177 ==
LOC: EC 13:16 → 4SSUR 19:41
PROVIDERS: ADMIT Internal Medicine; ATTEND Internal Medicine
DX: U07.1 COVID-19 (principal); J12.82 Pneumonia due to coronavirus disease 2019; J96.01 Acute respiratory failure with hypoxia; D69.6 Thrombocytopenia, unspecified; G89.29 Other chronic pain; M54.5 Low back pain; E87.6 Hypokalemia; Z79.891 Long term (current) use of opiate analgesic; Z79.899 Other long term (current) drug therapy; Z87.442 Personal history of urinary calculi; Z87.828 Personal history of other (healed) physical injury and trauma; Z87.19 Personal history of other diseases of the digestive system; Z90.49 Acquired absence of other specified parts of digestive tract; Z87.39 Personal history of other diseases of the musculoskeletal system and connective tissue; Z86.59 Personal history of other mental and behavioral disorders; Z87.2 Personal history of diseases of the skin and subcutaneous tissue
CPT/HCPCS: 36415; 71046; 80053; 82728; 83605; 83615; 83735; 84145; 85025; 85379; 85610; 85730; 86140; 87040; 87635; 93005; 94640; 96365; 99285

== ENCOUNTER → 2021-12-13 | Outpatient (CLI) | payer OTHER ==
--- NOTE | 2021-12-13 12:20 | CT ---
EXAMINATION TYPE: CT urogram wo/w con DATE OF EXAM: 12/13/2021 COMPARISON: Prior CT April 06, 2019 and older CTs HISTORY: Bilateral flank pain CT DLP: 3451.2 mGycm, Automated Exposure Control for Dose Reduction was Utilized. CONTRAST: CT scan of the abdomen and pelvis is performed without oral and without and with IV Contrast, patient injected with 84ml mL of Isovue 300. Urogram protocol with 3-D reconstructed images created on an in dependent workstation and reviewed. FINDINGS: KUB: Noncontrast images show probable 1 to 2 mm nonobstructing calculus left kidney axial image 46 mi dpole level. No right-sided renal calculus. There is symmetric cortical medullary uptake and excretio n without concerning solid or cystic renal mass or hydronephrosis seen in either kidney on current st udy. Visualized portion of both ureters show no obstructing mass or calculus currently. No intralumin al mass or calculus in the urinary bladder. LUNG BASES: At least moderate coronary artery calcification is identified. Elevated left hemidiaphrag m is seen. Mild Cardiomegaly. LIVER/GB: Visualized liver is heterogeneously hypodense consistent with diffuse fatty infiltration. C holecystectomy clips are redemonstrated.. PANCREAS: Moderate fat replaced atrophy in the pancreatic head redemonstrated. SPLEEN: Anterior positioning of spleen redemonstrated. ADRENALS: No significant abnormality is seen. BOWEL: No significant abnormality is seen. PROSTATE/SEMINAL VESICLES: Normal size prostate. LYMPH NODES: Mild mesenteric fat stranding is again seen. OSSEOUS STRUCTURES: Moderate multilevel spurring in the spine. Moderate to severe disc space narrowin g L5-S1 level. Mild to moderate disc space narrowing and spurring right L2-L3 level. OTHER: No significant additional abnormality is seen. IMPRESSION: New 1 to 2 mm nonobstructing mid pole left renal calculus. Source of patient's bilateral flank pain not identified. Ximena mesentery appearance redemonstrated.
== END | disposition home or self-care (01) ==
LOC: RADCTMAIN 10:00
PROVIDERS: ATTEND Family Medicine
DX: R10.9 Unspecified abdominal pain (principal); Z87.442 Personal history of urinary calculi
CPT/HCPCS: 74178; 74400; Q9967

== ENCOUNTER → 2021-12-28 | Outpatient (CLI) | payer OTHER ==
--- NOTE | 2021-12-28 10:32 | MR ---
EXAMINATION TYPE: MR lumbar spine wo/w con DATE OF EXAM: 12/28/2021 COMPARISON: 1914 HISTORY: Low back pain that radiates down left and right leg CONTRAST: 9 mL Gadavist TECHNIQUE: T1 and T2 axial and sagittal, postcontrast T1 axial and sagittal images of the lumbar spi ne are submitted. FINDINGS: There is no abnormal signal seen within the visualized spinal cord or paraspinal soft tissu es. At L1-2 there is degenerative disc disease with minimal right paracentral disc bulging and mild effac ement of thecal sac. No discrete herniation or canal stenosis. Neural foramina are maintained. Mild h ypertrophic changes since At L2-3 there is moderate to severe degenerative disc disease with diffuse disc bulging and hypertrop hic change of facets and ligamentum flavum. Mild central stenosis and [id number] bilateral fora guero enlargement. Discogenic marrow changes are stable. There is a 1 to 2 mm retrolisthesis of L2 re lative to L3. At L3-4 there is facet arthropathy with ligamentum flavum hypertrophy. There is a small focal central disc protrusion with mild effacement of thecal sac. Borderline to mild central stenosis. Neural fora ryder remain patent At L4-5 there is facet arthropathy appears advanced ligamentum flavum hypertrophy. Small focal centra l disc herniation mildly effacing the thecal sac. There is mild bilateral foraminal protrusion and mi ld central stenosis. At L5-S1 there is vacuum disc compatible severe degenerative disc disease. Broad-based central disc p rotrusion. Diminutive spinal canal with facet arthropathy and ligamentum flavum projecting. Findings contribute to mild canal stenosis and moderate to severe bilateral foraminal encroachment. Findings a re suspicious for a right paracentral small extruded disc fragment measuring 6 x 5 mm posterior to th e lower margin of the L5 vertebral segment. IMPRESSION: 1. Multilevel degenerative disc disease with vacuum disc and severe changes L2-3 and L5-S1. Multileve l mild central stenosis due to hypertrophic changes of the facets and ligamentum flavum and disc bulg ing. 2. Disc protrusion or small herniation centrally at L3-4, L4-5 and L5-S1 stable from prior exam with mild effacement of thecal sac. However, findings are suspicious for a right paracentral small extrude d disc fragment measuring 6 x 5 mm posterior to the lower margin of the L5 vertebral segment. 3. Multilevel foraminal encroachment as discussed above. Findings most marked bilaterally L5-S1 moder ate to severe bilateral foraminal
== END | disposition home or self-care (01) ==
LOC: RADMRIMAIN 09:00
PROVIDERS: ATTEND Physical Medicine & Rehabilitation
DX: M51.16 Intervertebral disc disorders with radiculopathy, lumbar region (principal); M48.061 Spinal stenosis, lumbar region without neurogenic claudication
CPT/HCPCS: 72158; A9585